=== PATIENT | female | born 1965 | race Caucasian/White ===

== ENCOUNTER 2017-06-10 11:32 | Emergency (ER) | payer OTHER ==
[2017-06-10 11:36] VITALS: BMI 40.7
[2017-06-10 11:39] VITALS: BP 138/79
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
[2017-06-10] MEDS ORDERED: TORADOL 60 MG VIAL IM ONE (12:55)
[2017-06-10] MEDS ORDERED: TORADOL 60 MG VIAL ONE (12:57)
--- NOTE | 2017-06-10 13:03 | RAD ---
Examination: X-rays of the right hip. Clinical history: Right hip pain, fell this morning. Technique: An AP view of the pelvis and a frog-leg lateral view of the right knee were obtained. Comparison: None available. Findings: No acute fracture, dislocation, or destructive bony lesion is noted. No arthropathy is noted at the hips bilaterally. Degenerative changes are noted in the visualized por tion of the spine. Calcific densities are seen overlying the pelvis, likely due to phleboliths. A soft tissue opacity is seen overlying the pelvis, likely a partially filled bladder. Impression: 1. No acute fracture or dislocation. Reported By:
--- NOTE | 2017-06-10 13:04 | RAD ---
Examination: X-rays of the left tib-fib. Clinical history: Left leg pain, fell this morning. Technique: Two views of the left tib-fib were obtained. Comparison: None available. Findings: No acute fracture, dislocation, or destructive bony lesion is noted. No soft tissue abnormality is noted. Impression: 1. No acute fracture or dislocation. Reported By:
--- NOTE | 2017-06-10 13:05 | RAD ---
Examination: X-rays of the right tib-fib. Clinical history: Right leg pain, fell this morning. Technique: Two views of the right tib-fib were obtained. Comparison: None available. Findings: No acute fracture, dislocation, or destructive bony lesion is noted. No soft tissue abnormality is noted. Impression: 1. No acute fracture or dislocation. Reported By:
--- NOTE | 2017-06-10 13:32 | RAD ---
Examination: X-rays of the lumbar spine. Clinical History: Lower back pain, fell this morning. Technique: Three views of the lumbar spine were obtained. Comparison: None available. Findings: The vertebral body alignment is within normal limits. There is narrowing of the L5-S1 intervertebral disc space, with vacuum disc phenomenon seen associate d with the intervertebral disc space, consistent with disc degenerative changes. A biconcave appearance is seen associated with the vertebrae throughout the lumbar spine and in the v isualized portion of the thoracic spine. 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 Findings are nonspecific and could be seen in osteoporosis, sickle-cell disease, hereditary sphero cytosis, homocystinuria, renal osteodystrophy, osteogenesis imperfecta and thalassemia major. Clinica l correlation is recommended. There is a moderate anterior wedge compression deformity of the T11 vertebra. The age is indeterminat e. Clinical correlation with the patient's history and point tenderness is recommended. An MRI of the thoracic/lumbar spine could be obtained for more complete evaluation of this finding, if clinically indicated. Mild vertebral body osteophytosis is seen at multiple levels in the lumbar spine. No spondylolysis or spondylolisthesis is noted. No soft tissue abnormality is noted. Impression: 1. There is a moderate anterior wedge compression deformity of the T11 vertebra. The age is indetermi jackson. Clinical correlation with the patient's history and point tenderness is recommended. An MRI of the thoracic/lumbar spine could be obtained for more complete evaluation of this finding, if clinical ly indicated. 2. A biconcave appearance is seen associated with the vertebrae throughout the lumbar spine and in th e visualized portion of the thoracic spine. Findings are consistent with so-called 'fish-mouth' verte brae. Findings are nonspecific and could be seen in osteoporosis, sickle-cell disease, hereditary sph erocytosis, homocystinuria, renal osteodystrophy, osteogenesis imperfecta and thalassemia major. Clin ical correlation is recommended. 3. Lumbar spondylosis, as described above. 4. Narrowing of the L5-S1 intervertebral disc space, consistent with disc degenerative changes. Reported By:
--- NOTE | 2017-06-10 14:23 | CT ---
HISTORY: Proximal lateral right lower leg pain after fall Study: CT of the right lower leg without contrast Comparison: Radiograph same day Technique: Multiple axial images were obtained without administration of IV contrast. Sagittal and c oronal reformats were performed and reviewed. Dose reduction techniques including Automated Exposure Control (AEC) and adjustment of mA and kV were utilized. Findings: There is no acute fracture or dislocation identified. Normal alignment of the right knee and ankle jaziel ints. The surrounding soft tissues are intact with mild soft tissue swelling noted laterally overlyin g the distal fibula and mild soft tissue swelling also noted medial to the tibial plateau. No joint e ffusion. IMPRESSION: 1. Mild soft tissue swelling as described without acute fracture. Reported By:
[2017-06-10] MEDS ORDERED: ADACEL TDaP IM ONE ×2 (14:49→14:51)
== END 2017-06-10 15:19 | disposition home or self-care (01) ==
LOC: ER 11:48
DX: M25.551 Pain in right hip (principal); M79.1 Myalgia; W19.XXXA Unspecified fall, initial encounter; Y92.019 Unspecified place in single-family (private) house as the place of occurrence of the external cause
CPT/HCPCS: 72100; 73501; 73590; 73700; 90471; 96372; 99282; J1885

== ENCOUNTER → 2017-06-27 | Outpatient (CLI) | payer OTHER ==
[2017-06-10 11:39] VITALS: BP 138/79
--- NOTE | 2017-06-28 10:01 | CT ---
History: Bronchiolitis obliterans. Study: High resolution chest CT. Comparison: Chest x-ray dated January 17, 2016, lumbar spine series dated June 10, 2017, and CT abdo men/pelvis dated January 01, 2016. Technique: Multiple axial CT images through the chest without IV contrast. Additional high resolution cuts were performed at 1 mm slice thickness at one centimeter interval using a bone algorithm with a n inspiratory and expiratory phase in prone and supine positions. Findings: Mediastinum: Mild calcification of the proximal left anterior descending coronary artery. Otherwise, the visualized great vessels, heart, trachea, esophagus, and thyroid gland appear normal. No patholog ic mediastinal or hilar adenopathy. Lungs: Anterior right lower lung scarring with linear calcification. This is nonspecific but may repr esent sequela from remote lung biopsy. No obvious focal consolidation, pleural effusion, pneumothorax , pulmonary nodule, or mass. High-resolution: No evidence of bronchiectasis, fibrosis, or air-trapping. Abdomen: Diffuse fatty infiltration of the liver with focal fatty sparing at the gallbladder fossa. N o obvious liver lesions. Otherwise, the visualized upper abdominal structures appear normal. Musculoskeletal: Multiple compression deformities of the thoracolumbar spine appear unchanged given t echnique. No acute osseous abnormality. Impression: 1. No evidence of acute thoracic pathology. 2. Other chronic findings as above. Reported By:
== END ==
LOC: RAD 13:34
PROVIDERS: ATTEND Internal Medicine Sleep Medicine
DX: J44.9 Chronic obstructive pulmonary disease, unspecified (principal)
CPT/HCPCS: 71250

== ENCOUNTER 2017-10-05 16:16 | Observation (INO) | payer OTHER ==
[2017-10-05] MEDS: NS 1000 ML 1,000 ML IV SCH (17:50)
[2017-10-05 18:13] LABS: BASOPHILS # (AUTO) 0.1 X10^3/uL (0.0-0.1); BASOPHILS % (AUTO) 0.8 % (0.2-1.0); EOSINOPHILS # (AUTO) 0.4 x10^3/uL (0.0-0.2); EOSINOPHILS % (AUTO) 3.4 % (0.9-2.9); HEMATOCRIT 40.5 % (36.0-47.0); HEMOGLOBIN 13.8 g/dL (12.0-16.0); LYMPHOCYTES # (AUTO) 3.2 X10^3/uL (1.3-2.9); LYMPHOCYTES % (AUTO) 30.7 % (21.0-51.0); MEAN CORPUSCULAR HEMOGLOBIN 29.3 pg (27.0-34.0); MEAN CORPUSCULAR HGB CONC 34.1 g/dL (33.0-35.0); MEAN CORPUSCULAR VOLUME 85.8 fL (80.0-100.0); MEAN PLATELET VOLUME 8.1 fL (7.4-11.0); MONOCYTES # (AUTO) 0.6 x10^3/uL (0.3-0.8); MONOCYTES % (AUTO) 6.2 % (0.0-13.0); NEUTROPHILS # (AUTO) 6.2 x10^3/uL (2.2-4.8); NEUTROPHILS % (AUTO) 58.9 % (42.0-75.0); PLATELET COUNT 335 X10^3/uL (150.0-450.0); RED BLOOD COUNT 4.72 X10^6/uL (3.5-5.4); RED CELL DISTRIBUTION WIDTH 13.5 % (11.6-16.5); WHITE BLOOD COUNT 10.5 X10^3/uL (3.6-10.0)
[2017-10-05 18:18] LABS: ALANINE AMINOTRANSFERASE 39 Units/L (12-78); ALBUMIN 3.8 g/dL (3.4-5.0); ALKALINE PHOSPHATASE 92 Units/L (46-116); ASPARTATE AMINO TRANSFERASE 25 Units/L (15-37); BLOOD UREA NITROGEN 16 mg/dL (7-18); CALCIUM 9.1 mg/dL (8.5-10.1); CARBON DIOXIDE 28.4 mmol/L (21-32); CHLORIDE 98 mmol/L (98-107); COR NA(FOR HYPERGLY) 139 mmol/L (136-145); CREATINE KINASE 52 Units/L (26-192); CREATININE 0.77 mg/dL (0.55-1.02); SODIUM 134 mmol/L (136-145); TOTAL PROTEIN 8.7 g/dL (6.4-8.2); eGFR BLACK RACES > 60 (>60); eGFR NON BLACK RACES > 60 (>60)
[2017-10-05 18:29] VITALS: BMI 42.3
[2017-10-05 19:09] LABS: BILIRUBIN,URINE NEGATIVE (NEGATIVE); BLOOD/HEMOGLOBIN,URINE NEGATIVE (NEGATIVE); GLUCOSE, URINE 3+ (NEGATIVE); KETONES,URINE NEGATIVE (NEGATIVE); LEUKOCYTE ESTERASE ,URINE 1+ (NEGATIVE); NITRITES,URINE NEGATIVE (NEGATIVE); PROTEIN,URINE NEGATIVE (NEGATIVE); UROBILINOGEN,URINE NORMAL (NORMAL)
[2017-10-05 19:19] LABS: APPEARANCE,URINE CLEAR (CLEAR); BACTERIA,URINE TRACE /HPF (NEGATIVE); COLOR,URINE PALE YELLOW (YELLOW); RBC,URINE 0-2 /HPF (NONE SEEN); SQUAMOUS EPITHELIAL CELL,UR FEW /HPF (NEGATIVE)
[2017-10-05 19:20] LABS: RENAL EPITHELIAL CELLS,URINE RARE /HPF (NEGATIVE)
--- NOTE | 2017-10-05 19:43 | CT ---
HEAD CT WITHOUT IV CONTRAST CLINICAL INDICATION: Fall with weakness TECHNIQUE: Axial CT images from skull base to vertex without IV contrast.Dose reduction techniques in cluding Automated Exposure Control (AEC) and adjustment of mA and kV were utlized. COMPARISON: None FINDINGS: There is no abnormal brain parenchymal density. There is no evidence of acute infarction, intracrani al hemorrhage, mass or mass effect, or abnormal extra-axial collection. The density of the larger dur al venous sinuses is normal. The ventricles are normal in size, shape and position. The skull base an d calvarium are normal. The included paranasal sinuses and mastoid air cells are predominantly clear. IMPRESSION: 1. No acute intracranial abnormality. Reported By:
[2017-10-05] MEDS: HumuLIN R SUBCUT PRN (20:39)
[2017-10-06 06:32] LABS: BASOPHILS # (AUTO) 0.1 X10^3/uL (0.0-0.1); BASOPHILS % (AUTO) 0.7 % (0.2-1.0); EOSINOPHILS # (AUTO) 0.4 x10^3/uL (0.0-0.2); EOSINOPHILS % (AUTO) 3.3 % (0.9-2.9); HEMATOCRIT 39.4 % (36.0-47.0); HEMOGLOBIN 13.4 g/dL (12.0-16.0); LYMPHOCYTES # (AUTO) 4.1 X10^3/uL (1.3-2.9); LYMPHOCYTES % (AUTO) 31.9 % (21.0-51.0); MEAN CORPUSCULAR HEMOGLOBIN 29.3 pg (27.0-34.0); MEAN CORPUSCULAR VOLUME 86.1 fL (80.0-100.0); MONOCYTES # (AUTO) 0.9 x10^3/uL (0.3-0.8); MONOCYTES % (AUTO) 6.9 % (0.0-13.0); NEUTROPHILS # (AUTO) 7.4 x10^3/uL (2.2-4.8); NEUTROPHILS % (AUTO) 57.2 % (42.0-75.0); PLATELET COUNT 319 X10^3/uL (150.0-450.0); RED BLOOD COUNT 4.58 X10^6/uL (3.5-5.4); RED CELL DISTRIBUTION WIDTH 13.8 % (11.6-16.5)
[2017-10-06 07:04] LABS: ALANINE AMINOTRANSFERASE 37 Units/L (12-78); ALBUMIN 3.4 g/dL (3.4-5.0); ALKALINE PHOSPHATASE 85 Units/L (46-116); ASPARTATE AMINO TRANSFERASE 24 Units/L (15-37); BLOOD UREA NITROGEN 13 mg/dL (7-18); CALCIUM 8.7 mg/dL (8.5-10.1); CARBON DIOXIDE 29.9 mmol/L (21-32); CHLORIDE 102 mmol/L (98-107); COR NA(FOR HYPERGLY) 141 mmol/L (136-145); CREATINE KINASE 49 Units/L (26-192); CREATININE 0.78 mg/dL (0.55-1.02); SODIUM 139 mmol/L (136-145); eGFR BLACK RACES > 60 (>60); eGFR NON BLACK RACES > 60 (>60)
[2017-10-06] MEDS: NS 1000 ML 1,000 ML IV SCH ×2 (09:10→23:34)
--- NOTE | 2017-10-06 09:54 | DR.UPDATE ---
H&P Update History and Physical Update: WAS SEEN IN THE OFFICE ON 10/05/2017. A H&P WAS COMPLETED PRIOR TO ADMISSION. PATIENT HAS BEEN SEEN AND EXAMINED WITH NO CHANGES NOTED TO H&P. Changes noted: NO Yes with the following:
--- NOTE | 2017-10-06 11:17 | RAD ---
HISTORY: Bilateral hip pain Study: Bilateral hips AP, frog-leg, AP pelvis Comparison: 06/10/2017 Findings: The bones are osteopenic. The pelvic bones and SI joints are intact. The hip joints are intact. No jaziel int erosions are noted. No fracture, lytic, or blastic lesion is identified. No periarticular soft ti ssue abnormality is identified. IMPRESSION: Normal hips bilaterally Osteopenia Reported By:
--- NOTE | 2017-10-06 11:20 | RAD ---
Indication: Back pain Exam: Lumbar spine series Comparison: 06/10/2017. Findings: The lumbar vertebra are well aligned. There is a biconcave appearance throughout the thorac olumbar vertebra which is unchanged. There are mild compression fractures of T11, T12, L1, and L4 whi ch are grossly unchanged. No displaced or retropulsed fragment is seen. There are sclerotic changes f acets inferiorly with no pars defect seen. The bones are osteopenic. The pedicles are intact. Impression: Multiple old compression fractures along the thoracolumbar spine as above which are unchanged with no acute abnormality seen. Mild degenerative disc changes throughout and moderate osteoarthritic changes of the facets throughou t which is unchanged . Diffuse osteopenia Biconcave appearance throughout vertebra of the thoracolumbar spine which was described previously an d is unchanged . This can be seen and sickle cell disease or other types of metabolic bone disease. R ecommend clinical follow-up. Reported By:
[2017-10-06] MEDS: ASPIRIN EC 81 MG PO SCH (11:27)
[2017-10-06] MEDS: HumuLIN R SUBCUT PRN ×3 (12:20→21:26)
[2017-10-06] MEDS ORDERED: ULTRAM PO PRN (15:02)
[2017-10-06] MEDS ORDERED: ZOLOFT PO ONE (16:10)
[2017-10-06] MEDS: ZOLOFT PO SCH (16:11)
[2017-10-06] MEDS: WELLBUTRIN XL 150 MG (DAILY) PO SCH (16:11)
[2017-10-06] MEDS: NORCO 10/325 TAB PO PRN ×2 (16:12→23:34)
[2017-10-06] MEDS ORDERED: LAMICTAL TAB 100 MG PO SCH (21:00)
[2017-10-06] MEDS ORDERED: KLONOPIN TAB 1 MG PO PRN (22:00)
[2017-10-07 06:21] LABS: BASOPHILS # (AUTO) 0.1 X10^3/uL (0.0-0.1); BASOPHILS % (AUTO) 0.5 % (0.2-1.0); EOSINOPHILS # (AUTO) 0.4 x10^3/uL (0.0-0.2); EOSINOPHILS % (AUTO) 3.4 % (0.9-2.9); HEMATOCRIT 37.8 % (36.0-47.0); HEMOGLOBIN 12.8 g/dL (12.0-16.0); LYMPHOCYTES # (AUTO) 4.1 X10^3/uL (1.3-2.9); LYMPHOCYTES % (AUTO) 37.1 % (21.0-51.0); MEAN CORPUSCULAR HEMOGLOBIN 29.4 pg (27.0-34.0); MEAN CORPUSCULAR HGB CONC 33.8 g/dL (33.0-35.0); MEAN PLATELET VOLUME 7.9 fL (7.4-11.0); MONOCYTES # (AUTO) 0.9 x10^3/uL (0.3-0.8); MONOCYTES % (AUTO) 8.4 % (0.0-13.0); NEUTROPHILS # (AUTO) 5.5 x10^3/uL (2.2-4.8); NEUTROPHILS % (AUTO) 50.6 % (42.0-75.0); PLATELET COUNT 286 X10^3/uL (150.0-450.0); RED BLOOD COUNT 4.35 X10^6/uL (3.5-5.4); RED CELL DISTRIBUTION WIDTH 13.7 % (11.6-16.5)
[2017-10-07] MEDS: HumuLIN R SUBCUT PRN ×2 (06:29→13:15)
[2017-10-07 06:34] LABS: ALANINE AMINOTRANSFERASE 39 Units/L (12-78); ALBUMIN 3.2 g/dL (3.4-5.0); ALKALINE PHOSPHATASE 83 Units/L (46-116); ASPARTATE AMINO TRANSFERASE 24 Units/L (15-37); BLOOD UREA NITROGEN 15 mg/dL (7-18); CALCIUM 8.4 mg/dL (8.5-10.1); CARBON DIOXIDE 33.9 mmol/L (21-32); CHLORIDE 100 mmol/L (98-107); COR NA(FOR HYPERGLY) 142 mmol/L (136-145); CREATININE 0.76 mg/dL (0.55-1.02); SODIUM 138 mmol/L (136-145); TOTAL PROTEIN 7.6 g/dL (6.4-8.2); eGFR BLACK RACES > 60 (>60); eGFR NON BLACK RACES > 60 (>60)
[2017-10-07] MEDS: NORCO 10/325 TAB PO PRN (07:35)
[2017-10-07] MEDS ORDERED: COZAAR PO SCH (09:00)
[2017-10-07] MEDS ORDERED: ZOLOFT PO ONE (09:03)
[2017-10-07] MEDS: NS 1000 ML 1,000 ML IV SCH (09:10)
[2017-10-07] MEDS: WELLBUTRIN XL 150 MG (DAILY) PO SCH (09:11)
[2017-10-07] MEDS: ASPIRIN EC 81 MG PO SCH (09:12)
[2017-10-07] MEDS: ZOLOFT PO SCH (09:12)
[2017-10-07 12:52] VITALS: BP 156/92
--- NOTE | 2017-10-07 16:50 | VAS ---
HISTORY: Left leg pain. Study: Left lower extremity ultrasound. Comparison: None. TECHNIQUE: Multiple gibson scale and color flow Doppler images of the deep venous system were obtained of the left lower extremity. FINDINGS: The deep venous system of the left lower extremity was evaluated from the level of the common femoral vein through the popliteal vein. Normal color flow and augmentation can be observed. In addition, normal compression is seen throughout the deep venous system. IMPRESSION: Negative for DVT. Reported By:
[2017-10-09 08:30] LABS: ANTI-NUCLEAR ANTIBODY TEST None Detected (None Detected)
== END 2017-10-07 17:05 | disposition home or self-care (01) | DRG 556 ==
LOC: MED/SURG 16:16
PROVIDERS: ADMIT Internal Medicine; ATTEND Internal Medicine
DX: M25.551 Pain in right hip (principal); M25.561 Pain in right knee; M62.81 Muscle weakness (generalized); E11.65 Type 2 diabetes mellitus with hyperglycemia; F60.3 Borderline personality disorder; I10 Essential (primary) hypertension; W18.39XA Other fall on same level, initial encounter; M85.89 Other specified disorders of bone density and structure, multiple sites; R26.89 Other abnormalities of gait and mobility
CPT/HCPCS: 36415; 70450; 72110; 73521; 80053; 81001; 82550; 85025; 85652; 86140; 86200; 86308; 93971; 94760; A4216; A4222; G8978; G8979; G8990; G8991; S0106; G0378; J1815

== ENCOUNTER 2018-07-03 16:13 | Observation (INO) ==
[2018-07-03] MEDS ORDERED: TUSSIONEX PENNKINETIC SUSP PO PRN (17:33)
[2018-07-03] MEDS ORDERED: ZOFRAN INJ 4 MG VIAL IVP PRN (17:33)
[2018-07-03 17:56] LABS: BASOPHILS # (AUTO) 0.1 X10^3/uL (0.0-0.1); BASOPHILS % (AUTO) 0.6 % (0.2-1.0); EOSINOPHILS # (AUTO) 0.2 x10^3/uL (0.0-0.2); EOSINOPHILS % (AUTO) 1.8 % (0.9-2.9); HEMATOCRIT 44.1 % (36.0-47.0); HEMOGLOBIN 14.7 g/dL (12.0-16.0); LYMPHOCYTES % (AUTO) 26.2 % (21.0-51.0); MEAN CORPUSCULAR HEMOGLOBIN 28.6 pg (27.0-34.0); MEAN CORPUSCULAR HGB CONC 33.4 g/dL (33.0-35.0); MEAN CORPUSCULAR VOLUME 85.7 fL (80.0-100.0); MEAN PLATELET VOLUME 8.1 fL (7.4-11.0); MONOCYTES % (AUTO) 8.8 % (0.0-13.0); NEUTROPHILS # (AUTO) 7.2 x10^3/uL (2.2-4.8); NEUTROPHILS % (AUTO) 62.6 % (42.0-75.0); PLATELET COUNT 317 X10^3/uL (150.0-450.0); RED BLOOD COUNT 5.15 X10^6/uL (3.5-5.4); WHITE BLOOD COUNT 11.5 X10^3/uL (3.6-10.0)
--- NOTE | 2018-07-03 18:00 | RAD ---
HISTORY: Pneumonia Study: PA and lateral views of the chest. Comparison: Chest CT 06/27/2017 Findings: The cardiomediastinal silhouette is normal. No focal consolidations, pleural effusions or pneumothorax. Osseous structures demonstrate no acute abnormality. IMPRESSION: 1. No acute cardiopulmonary process. Reported By:
[2018-07-03] MEDS: XOPENEX 1.25 MG/3 ML NEBULE NEB SCH (18:05)
[2018-07-03 18:08] LABS: ALANINE AMINOTRANSFERASE 33 Units/L (12-78); ALBUMIN 3.8 g/dL (3.4-5.0); ALKALINE PHOSPHATASE 92 Units/L (46-116); ASPARTATE AMINO TRANSFERASE 21 Units/L (15-37); BLOOD UREA NITROGEN 13 mg/dL (7-18); CALCIUM 9.6 mg/dL (8.5-10.1); CARBON DIOXIDE 30.2 mmol/L (21-32); CHLORIDE 97 mmol/L (98-107); COR NA(FOR HYPERGLY) 140 mmol/L (136-145); CREATININE 0.74 mg/dL (0.55-1.02); SODIUM 136 mmol/L (136-145); TOTAL PROTEIN 8.5 g/dL (6.4-8.2); eGFR NON BLACK RACES > 60 (>60)
[2018-07-03] MEDS ORDERED: NS 1/2 1000 ML IV 1,000 ML IV ONE (18:35)
[2018-07-03] MEDS: NS 1/2 1000 ML IV 1,000 ML IV SCH (18:42)
[2018-07-03] MEDS: ROBITUSSIN DM PO SCH ×2 (18:43→22:27)
[2018-07-03] MEDS ORDERED: SALINE 3% 15 ML NEB TX NEB ONE (19:06)
[2018-07-03] MEDS ORDERED: NS 100 ML IV + SPIKE MINIBAG* 100 ML IV ONE (20:31)
[2018-07-03] MEDS: HumuLIN R SUBCUT PRN (20:40)
[2018-07-03] MEDS: SEROquel TAB 100 MG PO SCH (22:27)
[2018-07-03] MEDS: COREG TAB 6.25 MG PO SCH (22:28)
[2018-07-03] MEDS: ZOSYN VIAL 4.5 GRAMS IV SCH (22:29)
[2018-07-03] MEDS: KLONOPIN TAB 1 MG PO PRN (22:31)
[2018-07-04] MEDS: PULMICORT NEB TX 0.5 MG NEB SCH ×3 (00:29→20:03)
[2018-07-04] MEDS: XOPENEX 1.25 MG/3 ML NEBULE NEB SCH ×4 (00:29→16:26)
[2018-07-04] MEDS ORDERED: NS 100 ML IV + SPIKE MINIBAG* 100 ML IV ONE ×3 (05:01→20:04)
[2018-07-04] MEDS: ZOSYN VIAL 4.5 GRAMS IV SCH ×3 (05:11→21:19)
[2018-07-04 05:16] LABS: BASOPHILS % (AUTO) 0.4 % (0.2-1.0); EOSINOPHILS # (AUTO) 0.1 x10^3/uL (0.0-0.2); HEMATOCRIT 40.8 % (36.0-47.0); HEMOGLOBIN 13.6 g/dL (12.0-16.0); LYMPHOCYTES # (AUTO) 2.8 X10^3/uL (1.3-2.9); LYMPHOCYTES % (AUTO) 23.2 % (21.0-51.0); MEAN CORPUSCULAR HEMOGLOBIN 28.8 pg (27.0-34.0); MEAN CORPUSCULAR HGB CONC 33.3 g/dL (33.0-35.0); MEAN CORPUSCULAR VOLUME 86.4 fL (80.0-100.0); MEAN PLATELET VOLUME 8.4 fL (7.4-11.0); MONOCYTES # (AUTO) 1.2 x10^3/uL (0.3-0.8); MONOCYTES % (AUTO) 10.2 % (0.0-13.0); NEUTROPHILS # (AUTO) 7.8 x10^3/uL (2.2-4.8); NEUTROPHILS % (AUTO) 65.2 % (42.0-75.0); PLATELET COUNT 297 X10^3/uL (150.0-450.0); RED BLOOD COUNT 4.72 X10^6/uL (3.5-5.4); RED CELL DISTRIBUTION WIDTH 13.9 % (11.6-16.5)
[2018-07-04 05:40] LABS: ALBUMIN 3.3 g/dL (3.4-5.0); ALKALINE PHOSPHATASE 80 Units/L (46-116); ASPARTATE AMINO TRANSFERASE 18 Units/L (15-37); BLOOD UREA NITROGEN 14 mg/dL (7-18); CALCIUM 9.3 mg/dL (8.5-10.1); CARBON DIOXIDE 26.8 mmol/L (21-32); CHLORIDE 100 mmol/L (98-107); COR CA(FOR HYPOALB) 9.9 mg/dL (8.5-10.1); COR NA(FOR HYPERGLY) 140 mmol/L (136-145); CREATININE 0.75 mg/dL (0.55-1.02); SODIUM 137 mmol/L (136-145); TOTAL PROTEIN 7.6 g/dL (6.4-8.2); eGFR NON BLACK RACES > 60 (>60)
[2018-07-04 05:49] LABS: ALANINE AMINOTRANSFERASE 25 Units/L (12-78)
[2018-07-04] MEDS: HumuLIN R SUBCUT PRN ×4 (06:09→20:35)
--- NOTE | 2018-07-04 06:14 | RAD ---
HISTORY: Shortness of breath Study: Chest AP portable Comparison: 07/03/2018 Findings: The heart is within normal limits in size. The raffy are normal. The lung ramos are clear. No pleural effusions are identified. The bony thorax is unremarkable. IMPRESSION: Lungs remain clear Reported By:
[2018-07-04 07:59] VITALS: BMI 39.4
[2018-07-04] MEDS: COREG TAB 6.25 MG PO SCH ×2 (09:44→20:12)
[2018-07-04] MEDS: ROBITUSSIN DM PO SCH ×4 (09:44→20:12)
[2018-07-04] MEDS ORDERED: MUCOMYST 20% 200 MG/ML NEB SCH (10:00)
[2018-07-04] MEDS: COZAAR PO SCH (11:26)
[2018-07-04] MEDS: FLONASE NASAL SPRAY ENOSTRIL SCH ×2 (11:27→11:31)
[2018-07-04] MEDS: NORCO 10/325 TAB PO PRN ×2 (11:31→20:12)
[2018-07-04] MEDS: INSULIN DEGLUDEC 44 UNIT subcut SCH ×2 (11:32→20:14)
[2018-07-04] MEDS: MUCOMYST 20% 200 MG/ML NEB SCH ×2 (11:59→16:25)
[2018-07-04] MEDS: NS 1/2 1000 ML IV 1,000 ML IV SCH ×3 (15:01→23:20)
[2018-07-04] MEDS ORDERED: NS 1/2 1000 ML IV 1,000 ML IV ONE ×2 (15:03→20:05)
--- NOTE | 2018-07-04 19:57 | DR.UPDATE ---
H&P Update History and Physical Update: WAS SEEN IN THE OFFICE TODAY. SHE WAS ADMITTED FOR FURTHER EVALUATION AND TREATMENT OF BRONCHOPNEUMONIA AND HYPERTENSION. A H&P WAS COMPLETED PRIOR TO ADMISSION. PATIENT HAS BEEN SEEN AND EXAMINED WITH NO CHANGES NOTED TO H&P. Changes noted: NO Yes with the following:
[2018-07-04] MEDS ORDERED: SNACK - Diabetic Appropriate PO SCH (20:00)
[2018-07-04] MEDS ORDERED: ZOLOFT PO ONE (20:03)
[2018-07-04] MEDS: KLONOPIN TAB 1 MG PO PRN (20:12)
[2018-07-04] MEDS: SEROquel TAB 100 MG PO SCH (20:13)
[2018-07-04] MEDS ORDERED: ZOLOFT PO SCH (21:00)
[2018-07-04] MEDS ORDERED: LAMICTAL TAB 100 MG PO SCH (21:00)
[2018-07-05] MEDS: XOPENEX 1.25 MG/3 ML NEBULE NEB SCH (00:05)
[2018-07-05] MEDS: MUCOMYST 20% 200 MG/ML NEB SCH (00:06)
[2018-07-05] MEDS ORDERED: NS 100 ML IV + SPIKE MINIBAG* 100 ML IV ONE (05:19)
[2018-07-05 05:26] LABS: BASOPHILS % (AUTO) 0.3 % (0.2-1.0); EOSINOPHILS # (AUTO) 0.2 x10^3/uL (0.0-0.2); EOSINOPHILS % (AUTO) 1.9 % (0.9-2.9); HEMATOCRIT 38.1 % (36.0-47.0); HEMOGLOBIN 12.4 g/dL (12.0-16.0); LYMPHOCYTES % (AUTO) 33.1 % (21.0-51.0); MEAN CORPUSCULAR HEMOGLOBIN 28.6 pg (27.0-34.0); MEAN CORPUSCULAR HGB CONC 32.6 g/dL (33.0-35.0); MEAN CORPUSCULAR VOLUME 87.7 fL (80.0-100.0); MEAN PLATELET VOLUME 8.3 fL (7.4-11.0); MONOCYTES # (AUTO) 1.4 x10^3/uL (0.3-0.8); MONOCYTES % (AUTO) 11.7 % (0.0-13.0); NEUTROPHILS # (AUTO) 6.4 x10^3/uL (2.2-4.8); PLATELET COUNT 244 X10^3/uL (150.0-450.0); RED BLOOD COUNT 4.34 X10^6/uL (3.5-5.4); RED CELL DISTRIBUTION WIDTH 14.2 % (11.6-16.5)
[2018-07-05] MEDS: ZOSYN VIAL 4.5 GRAMS IV SCH (05:28)
[2018-07-05 05:36] LABS: ALANINE AMINOTRANSFERASE 25 Units/L (12-78); ALKALINE PHOSPHATASE 76 Units/L (46-116); ASPARTATE AMINO TRANSFERASE 14 Units/L (15-37); BLOOD UREA NITROGEN 9 mg/dL (7-18); CALCIUM 8.6 mg/dL (8.5-10.1); CARBON DIOXIDE 27.3 mmol/L (21-32); CHLORIDE 101 mmol/L (98-107); COR CA(FOR HYPOALB) 9.4 mg/dL (8.5-10.1); COR NA(FOR HYPERGLY) 141 mmol/L (136-145); CREATININE 0.71 mg/dL (0.55-1.02); SODIUM 137 mmol/L (136-145); TOTAL PROTEIN 7.2 g/dL (6.4-8.2); eGFR NON BLACK RACES > 60 (>60)
[2018-07-05] MEDS: HumuLIN R SUBCUT PRN ×2 (05:46→11:37)
--- NOTE | 2018-07-05 05:53 | RAD ---
Chest, one view Indication: Shortness of breath Comparison: Findings: The heart is normal in size. No focal infiltrate, significant effusion or pneumothorax is identified. There is no acute osseous abnormality. Impression: No acute cardiopulmonary abnormality or significant interval change. Reported By:
[2018-07-05] MEDS ORDERED: MICRO K EXTEN CAP 10 MEQ PO PRN (06:49)
[2018-07-05] MEDS ORDERED: KLOR-CON PO PRN (06:49)
[2018-07-05] MEDS ORDERED: POTASSIUM CHLORIDE LIQ 20 MEQ UDC PO PRN (06:49)
[2018-07-05] MEDS ORDERED: POTASSIUM CHL 60 MEQ/NS 0.45% 500 ML IV PRN (06:49)
[2018-07-05] MEDS ORDERED: K-DUR TAB 20 MEQ PO PRN (06:49)
[2018-07-05] MEDS ORDERED: POTASSIUM CHL 40 MEQ/NS 0.45% 500 ML IV PRN (06:49)
[2018-07-05] MEDS ORDERED: K-RIDER 10 MEQ/NS 100 ML 10 MEQ/100 ML BAG IV PRN (06:49)
[2018-07-05 08:17] VITALS: BP 135/81
[2018-07-05] MEDS: NORCO 10/325 TAB PO PRN (08:47)
[2018-07-05] MEDS: COZAAR PO SCH (08:47)
[2018-07-05] MEDS: COREG TAB 6.25 MG PO SCH (08:47)
[2018-07-05] MEDS: ROBITUSSIN DM PO SCH (08:49)
[2018-07-05] MEDS: FLONASE NASAL SPRAY ENOSTRIL SCH (08:49)
[2018-07-05] MEDS: PULMICORT NEB TX 0.5 MG NEB SCH (09:10)
[2018-07-05] MEDS ORDERED: FLUVIRIN or FLUCELVAX IM ONE (11:00)
[2018-07-05] MEDS ORDERED: PNEUMOVAX 23 IM ONE (12:00)
== END 2018-07-05 12:10 | disposition home or self-care (01) ==
LOC: MED/SURG
PROVIDERS: ADMIT Internal Medicine; ATTEND Internal Medicine
DX: I10 Essential (primary) hypertension; R50.9 Fever, unspecified; I20.9 Angina pectoris, unspecified; Z79.899 Other long term (current) drug therapy; E11.65 Type 2 diabetes mellitus with hyperglycemia; M54.40 Lumbago with sciatica, unspecified side; Z23 Encounter for immunization; J18.0 Bronchopneumonia, unspecified organism; F60.3 Borderline personality disorder; R53.1 Weakness
CPT/HCPCS: 36415; 71010; 71020; 71045; 71046; 80053; 83735; 85025; 87040; 87070; 87205; 87502; 90674; 90686; 94640; 94760; A4222; G0378; J1815; J2543; J7050; J7608; J7626; S0195

== ENCOUNTER 2018-12-18 10:34 | Inpatient (IN) ==
[2018-12-18] MEDS ORDERED: ZOFRAN INJ 4 MG VIAL IVP PRN (13:26)
[2018-12-18] MEDS ORDERED: NS 1000 ML 1,000 ML ONE (13:32)
[2018-12-18] MEDS: NS 1000 ML 1,000 ML IV SCH ×2 (13:49→20:31)
[2018-12-18 13:51] LABS: BASOPHILS # (AUTO) 0.1 X10^3/uL (0.0-0.1); BASOPHILS % (AUTO) 0.9 % (0.2-1.0); EOSINOPHILS # (AUTO) 0.5 x10^3/uL (0.0-0.2); HEMATOCRIT 41.8 % (36.0-47.0); HEMOGLOBIN 13.9 g/dL (12.0-16.0); LYMPHOCYTES # (AUTO) 3.4 X10^3/uL (1.3-2.9); LYMPHOCYTES % (AUTO) 27.2 % (21.0-51.0); MEAN CORPUSCULAR HEMOGLOBIN 28.8 pg (27.0-34.0); MEAN CORPUSCULAR HGB CONC 33.3 g/dL (33.0-35.0); MEAN CORPUSCULAR VOLUME 86.5 fL (80.0-100.0); MEAN PLATELET VOLUME 8.2 fL (7.4-11.0); MONOCYTES # (AUTO) 0.8 x10^3/uL (0.3-0.8); MONOCYTES % (AUTO) 6.2 % (0.0-13.0); NEUTROPHILS # (AUTO) 7.8 x10^3/uL (2.2-4.8); NEUTROPHILS % (AUTO) 61.7 % (42.0-75.0); PLATELET COUNT 339 X10^3/uL (150.0-450.0); RED BLOOD COUNT 4.83 X10^6/uL (3.5-5.4); RED CELL DISTRIBUTION WIDTH 13.3 % (11.6-16.5); WHITE BLOOD COUNT 12.7 X10^3/uL (3.6-10.0)
[2018-12-18 14:06] LABS: ALANINE AMINOTRANSFERASE 23 Units/L (12-78); ALBUMIN 3.5 g/dL (3.4-5.0); ALKALINE PHOSPHATASE 81 Units/L (46-116); ASPARTATE AMINO TRANSFERASE 20 Units/L (15-37); BLOOD UREA NITROGEN 15 mg/dL (7-18); CALCIUM 9.6 mg/dL (8.5-10.1); CARBON DIOXIDE 28.4 mmol/L (21-32); CHLORIDE 98 mmol/L (98-107); COR NA(FOR HYPERGLY) 138 mmol/L (136-145); CREATININE 0.76 mg/dL (0.55-1.02); SODIUM 135 mmol/L (136-145); TOTAL PROTEIN 8.4 g/dL (6.4-8.2); eGFR NON BLACK RACES > 60 (>60)
[2018-12-18] MEDS: HumuLIN R SUBCUT PRN ×2 (17:54→20:32)
[2018-12-18 19:17] LABS: BILIRUBIN,URINE NEGATIVE (NEGATIVE); BLOOD/HEMOGLOBIN,URINE NEGATIVE (NEGATIVE); GLUCOSE, URINE 3+ (NEGATIVE); KETONES,URINE NEGATIVE (NEGATIVE); LEUKOCYTE ESTERASE ,URINE NEGATIVE (NEGATIVE); NITRITES,URINE NEGATIVE (NEGATIVE); PROTEIN,URINE NEGATIVE (NEGATIVE); UROBILINOGEN,URINE NORMAL (NORMAL)
[2018-12-18 19:24] LABS: APPEARANCE,URINE CLEAR (CLEAR); COLOR,URINE YELLOW (YELLOW)
[2018-12-18] MEDS: SNACK - Diabetic Appropriate PO SCH (20:33)
[2018-12-19] MEDS: NS 1000 ML 1,000 ML IV SCH ×3 (05:32→21:27)
[2018-12-19] MEDS: HumuLIN R SUBCUT PRN ×4 (05:33→21:35)
[2018-12-19 05:35] LABS: BASOPHILS # (AUTO) 0.1 X10^3/uL (0.0-0.1); EOSINOPHILS # (AUTO) 0.5 x10^3/uL (0.0-0.2); EOSINOPHILS % (AUTO) 3.9 % (0.9-2.9); HEMATOCRIT 37.6 % (36.0-47.0); HEMOGLOBIN 12.5 g/dL (12.0-16.0); LYMPHOCYTES # (AUTO) 4.8 X10^3/uL (1.3-2.9); LYMPHOCYTES % (AUTO) 39.5 % (21.0-51.0); MEAN CORPUSCULAR HEMOGLOBIN 28.9 pg (27.0-34.0); MEAN CORPUSCULAR HGB CONC 33.2 g/dL (33.0-35.0); MEAN CORPUSCULAR VOLUME 87.1 fL (80.0-100.0); MEAN PLATELET VOLUME 7.8 fL (7.4-11.0); MONOCYTES # (AUTO) 0.8 x10^3/uL (0.3-0.8); MONOCYTES % (AUTO) 6.8 % (0.0-13.0); NEUTROPHILS # (AUTO) 5.9 x10^3/uL (2.2-4.8); NEUTROPHILS % (AUTO) 48.8 % (42.0-75.0); PLATELET COUNT 290 X10^3/uL (150.0-450.0); RED BLOOD COUNT 4.32 X10^6/uL (3.5-5.4); RED CELL DISTRIBUTION WIDTH 13.7 % (11.6-16.5); WHITE BLOOD COUNT 12.1 X10^3/uL (3.6-10.0)
[2018-12-19 05:57] LABS: ALANINE AMINOTRANSFERASE 20 Units/L (12-78); ALBUMIN 2.9 g/dL (3.4-5.0); ALKALINE PHOSPHATASE 64 Units/L (46-116); ASPARTATE AMINO TRANSFERASE 15 Units/L (15-37); BLOOD UREA NITROGEN 14 mg/dL (7-18); CALCIUM 8.9 mg/dL (8.5-10.1); CARBON DIOXIDE 30.1 mmol/L (21-32); CHLORIDE 103 mmol/L (98-107); COR CA(FOR HYPOALB) 9.8 mg/dL (8.5-10.1); COR NA(FOR HYPERGLY) 143 mmol/L (136-145); CREATININE 0.79 mg/dL (0.55-1.02); SODIUM 140 mmol/L (136-145); eGFR NON BLACK RACES > 60 (>60)
[2018-12-19] MEDS ORDERED: POTASSIUM CHL 40 MEQ/NS 0.45% 500 ML IV PRN (06:12)
[2018-12-19] MEDS ORDERED: POTASSIUM CHL 60 MEQ/NS 0.45% 500 ML IV PRN (06:12)
[2018-12-19] MEDS ORDERED: MICRO K EXTEN CAP 10 MEQ PO PRN (06:12)
[2018-12-19] MEDS ORDERED: MAGNESIUM SULFATE 1 GRAM/100 mL PREMIX 1 GM/100 ML BAG IV PRN (06:12)
[2018-12-19] MEDS ORDERED: K-RIDER 10 MEQ/NS 100 ML 10 MEQ/100 ML BAG IV PRN (06:12)
[2018-12-19] MEDS ORDERED: POTASSIUM CHLORIDE LIQ 20 MEQ UDC PO PRN (06:12)
[2018-12-19] MEDS ORDERED: K-DUR TAB 20 MEQ PO PRN (06:12)
[2018-12-19] MEDS ORDERED: KLOR-CON PO PRN (06:12)
[2018-12-19 08:44] VITALS: BMI 42.9
[2018-12-19] MEDS ORDERED: ROCEPHIN VIAL 1 GRAM IVP SCH (09:00)
[2018-12-19] MEDS: ANTIVERT TAB 25 MG PO SCH (16:03)
[2018-12-19] MEDS: COZAAR PO SCH (16:03)
[2018-12-19] MEDS: FLONASE NASAL SPRAY ENOSTRIL SCH (16:04)
[2018-12-19] MEDS ORDERED: PHARMACY CONSULT - DOSE _____ XX SCH (17:00)
[2018-12-19] MEDS ORDERED: ZOLOFT ONE (20:06)
--- NOTE | 2018-12-19 20:06 | DR.UPDATE ---
H&P Update History and Physical Update: History and Physical reviewed and patient examined. Changes noted: Yes with the following: PRESENTED TO THE OFFICE WITH COMPLAINTS OF WEAKNESS, DIZZINESS, NAUSEA/VOMITING, AND SEVERE PAIN TO THE MOUTH. ON EXAMINATION, TOP RIGHT BACK TEETH X2 BROKEN OFF AND GUM LINE NOTED WIT H ERYTHEMA AND SWELLING. SHE IS NOTED WITH DIFFUSE ABDOMINAL TENDERNESS. SHE RECEIVED A ROCEPHIN INJECTION IN THE OFFICE ONE WEEK AGO WELL PRESCRIPTIONS FOR CEFDINIR 300MG PO BID AND MECLIZINE 25MG PO HS. SHE DENIES IMPROVEMENT IN SYMTOMS SINCE TREATMENT WAS STARTED. WE ADMITTED PATIENT FOR FURTHER EVALUATION AND TREATMENT OF DEHYDRATION, WEAKNESS, N/V, AND DENTAL ABSCESS. WE PLANNED TO OBTAIN LABS ON ADMISSION. WE WILL START NORMAL SALINE AT 125ML/HR, ROCEPHIN 1G IV DAILY, HUMULIN R SLIDING SCALE, AND WILL RESUME HER HOME MEDICATIONS. OTHERWISE, WE WILL FOLLOW UP WITH AM LABS AND CONTINUE TO MONITOR. Prescription drug monitoring program results: PDMP reviewed and no concerns identified
[2018-12-19] MEDS: SNACK - Diabetic Appropriate PO SCH (21:00)
[2018-12-19] MEDS ORDERED: NS 100 ML IV + SPIKE MINIBAG* 100 ML ONE ×2 (21:19→21:21)
[2018-12-19] MEDS: ZOSYN VIAL 3.375 GRAMS IV SCH (21:26)
[2018-12-19] MEDS: KLONOPIN TAB 1 MG PO PRN (21:27)
[2018-12-19] MEDS: ZOLOFT PO SCH (21:28)
[2018-12-19] MEDS: COREG TAB 6.25 MG PO SCH (21:28)
[2018-12-19] MEDS: NORCO 10/325 TAB PO PRN (21:28)
[2018-12-19] MEDS: LAMICTAL TAB 100 MG PO SCH (21:30)
[2018-12-19] MEDS: SEROquel TAB 100 MG PO SCH (21:30)
[2018-12-20] MEDS ORDERED: NS 100 ML IV + SPIKE MINIBAG* 100 ML ONE ×3 (04:44→20:02)
[2018-12-20] MEDS: NS 1000 ML 1,000 ML IV SCH ×3 (05:38→21:00)
[2018-12-20] MEDS: ZOSYN VIAL 3.375 GRAMS IV SCH ×3 (05:38→21:00)
[2018-12-20] MEDS: HumuLIN R SUBCUT PRN ×4 (06:01→21:01)
[2018-12-20 06:22] LABS: BASOPHILS # (AUTO) 0.1 X10^3/uL (0.0-0.1); BASOPHILS % (AUTO) 0.5 % (0.2-1.0); EOSINOPHILS # (AUTO) 0.4 x10^3/uL (0.0-0.2); EOSINOPHILS % (AUTO) 3.9 % (0.9-2.9); HEMATOCRIT 35.7 % (36.0-47.0); HEMOGLOBIN 12.1 g/dL (12.0-16.0); LYMPHOCYTES # (AUTO) 4.4 X10^3/uL (1.3-2.9); LYMPHOCYTES % (AUTO) 41.2 % (21.0-51.0); MEAN CORPUSCULAR HEMOGLOBIN 29.4 pg (27.0-34.0); MEAN CORPUSCULAR HGB CONC 33.8 g/dL (33.0-35.0); MEAN CORPUSCULAR VOLUME 86.9 fL (80.0-100.0); MEAN PLATELET VOLUME 7.7 fL (7.4-11.0); MONOCYTES # (AUTO) 0.8 x10^3/uL (0.3-0.8); MONOCYTES % (AUTO) 7.4 % (0.0-13.0); NEUTROPHILS # (AUTO) 5.1 x10^3/uL (2.2-4.8); PLATELET COUNT 296 X10^3/uL (150.0-450.0); RED CELL DISTRIBUTION WIDTH 13.6 % (11.6-16.5); WHITE BLOOD COUNT 10.8 X10^3/uL (3.6-10.0)
[2018-12-20 06:54] LABS: ALANINE AMINOTRANSFERASE 24 Units/L (12-78); ALKALINE PHOSPHATASE 65 Units/L (46-116); ASPARTATE AMINO TRANSFERASE 18 Units/L (15-37); BLOOD UREA NITROGEN 10 mg/dL (7-18); CALCIUM 8.4 mg/dL (8.5-10.1); CARBON DIOXIDE 29.7 mmol/L (21-32); CHLORIDE 103 mmol/L (98-107); COR CA(FOR HYPOALB) 9.2 mg/dL (8.5-10.1); COR NA(FOR HYPERGLY) 143 mmol/L (136-145); CREATININE 0.78 mg/dL (0.55-1.02); SODIUM 140 mmol/L (136-145); TOTAL PROTEIN 7.2 g/dL (6.4-8.2); eGFR NON BLACK RACES > 60 (>60)
[2018-12-20] MEDS: COZAAR PO SCH (09:17)
[2018-12-20] MEDS: ANTIVERT TAB 25 MG PO SCH (09:17)
[2018-12-20] MEDS: COREG TAB 6.25 MG PO SCH ×2 (09:17→20:47)
[2018-12-20] MEDS: ZOFRAN TAB 4 MG PO PRN (09:19)
[2018-12-20] MEDS: FLONASE NASAL SPRAY ENOSTRIL SCH (09:21)
[2018-12-20] MEDS: CIPRO IV 400 MG PREMIX* 400 MG/200 ML IV.SOLN. IV SCH ×2 (14:00→20:49)
[2018-12-20] MEDS: INSULIN DEGLUDEC 40 UNIT subcut SCH ×2 (17:08→21:00)
[2018-12-20] MEDS ORDERED: ZOLOFT ONE (20:01)
[2018-12-20] MEDS: ZOLOFT PO SCH (20:47)
[2018-12-20] MEDS: LAMICTAL TAB 100 MG PO SCH (20:47)
[2018-12-20] MEDS: SEROquel TAB 100 MG PO SCH (20:47)
[2018-12-20] MEDS: KLONOPIN TAB 1 MG PO PRN (20:58)
[2018-12-20] MEDS: NORCO 10/325 TAB PO PRN (20:58)
[2018-12-20] MEDS: SNACK - Diabetic Appropriate PO SCH (20:59)
[2018-12-21] MEDS ORDERED: NS 100 ML IV + SPIKE MINIBAG* 100 ML ONE ×2 (05:06→14:01)
[2018-12-21] MEDS: NS 1000 ML 1,000 ML IV SCH ×3 (06:08→22:26)
[2018-12-21] MEDS: ZOSYN VIAL 3.375 GRAMS IV SCH ×3 (06:08→22:20)
[2018-12-21] MEDS: HumuLIN R SUBCUT PRN ×2 (06:09→22:34)
[2018-12-21 06:20] LABS: BASOPHILS % (AUTO) 0.4 % (0.2-1.0); EOSINOPHILS # (AUTO) 0.5 x10^3/uL (0.0-0.2); EOSINOPHILS % (AUTO) 4.8 % (0.9-2.9); HEMATOCRIT 36.2 % (36.0-47.0); LYMPHOCYTES # (AUTO) 4.3 X10^3/uL (1.3-2.9); LYMPHOCYTES % (AUTO) 43.6 % (21.0-51.0); MEAN CORPUSCULAR HEMOGLOBIN 29.1 pg (27.0-34.0); MEAN CORPUSCULAR HGB CONC 33.2 g/dL (33.0-35.0); MEAN CORPUSCULAR VOLUME 87.4 fL (80.0-100.0); MEAN PLATELET VOLUME 7.8 fL (7.4-11.0); MONOCYTES # (AUTO) 0.7 x10^3/uL (0.3-0.8); MONOCYTES % (AUTO) 7.4 % (0.0-13.0); NEUTROPHILS # (AUTO) 4.3 x10^3/uL (2.2-4.8); NEUTROPHILS % (AUTO) 43.8 % (42.0-75.0); PLATELET COUNT 280 X10^3/uL (150.0-450.0); RED BLOOD COUNT 4.14 X10^6/uL (3.5-5.4); RED CELL DISTRIBUTION WIDTH 13.7 % (11.6-16.5); WHITE BLOOD COUNT 9.8 X10^3/uL (3.6-10.0)
[2018-12-21 06:53] LABS: ALANINE AMINOTRANSFERASE 23 Units/L (12-78); ALBUMIN 2.9 g/dL (3.4-5.0); ALKALINE PHOSPHATASE 66 Units/L (46-116); ASPARTATE AMINO TRANSFERASE 16 Units/L (15-37); BLOOD UREA NITROGEN 9 mg/dL (7-18); CALCIUM 8.5 mg/dL (8.5-10.1); CARBON DIOXIDE 30.1 mmol/L (21-32); CHLORIDE 102 mmol/L (98-107); COR CA(FOR HYPOALB) 9.4 mg/dL (8.5-10.1); COR NA(FOR HYPERGLY) 144 mmol/L (136-145); SODIUM 140 mmol/L (136-145); eGFR NON BLACK RACES > 60 (>60)
[2018-12-21] MEDS: COZAAR PO SCH (10:05)
[2018-12-21] MEDS: CIPRO IV 400 MG PREMIX* 400 MG/200 ML IV.SOLN. IV SCH ×2 (10:05→22:20)
[2018-12-21] MEDS: COREG TAB 6.25 MG PO SCH ×2 (10:05→22:23)
[2018-12-21] MEDS: ANTIVERT TAB 25 MG PO SCH (10:06)
[2018-12-21] MEDS: MAGIC MOUTHWASH MT SCH ×3 (14:18→22:25)
[2018-12-21] MEDS: FLONASE NASAL SPRAY ENOSTRIL SCH (14:19)
[2018-12-21] MEDS: SNACK - Diabetic Appropriate PO SCH (20:00)
--- NOTE | 2018-12-21 20:46 | PCM.PROG ---
Progress Note - Progress Note for Day of Date of Exam: 12/19/18 - Subjective Subjective: WAS ADMITTED FOR DEHYDRATION, WEAKNESS, AND A DENTAL ABSCESS. TODAY, SHE IS ALERT AND ORIENTED, LYING IN BED ON MORNING ROUNDS. SHE CONTINUES WITH COMPLAINTS OF PAIN TO MOUTH AND GENERALIZED WEAKNESS THIS MORNING. SHE DENIES NAUSEA OR VOMITING. ON EXAMINATION, HEART IS REGULAR IN RATE AND RHYTHM. BILATERAL LUNGS ARE NOTED WITH DIMINISHED LUNGS SOUNDS THROUGHOUT. ABDOMEN IS ROUND, SOFT, AND NON-TENDER WITH NORMAL BOWEL SOUNDS NOTED IN ALL QUADRANTS. HER VITALS THIS MORNING ARE: 97.5-73-20-00%-151/97. LABS WERE OBTAINED. ABNORMAL LAB VALUES INCLUDE THE FOLLOWING: WBC 12.1, GLUCOSE 206, ALBUMIN 2.9. SHE IS CURRENTLY RECEIVING IV FLUIDS AND ROCEPHIN 1G IV DAILY. WE WILL DISCONTINUE THE ROCEPHIN AND START ZOSYN 3.375G IV TID TODAY. WE WILL RESUME HER HOME MEDICATIONS. OTHERWISE, WE WILL FOLLOW UP WITH AM LABS AND CONTINUE TO MONITOR. - Past Medical Family Social History Past Med/Fam/Surg Hx: No changes since H&P Allergies: Allergies No Known Drug Allergies Allergy (Verified 06/10/17 12:12) - Review of Systems ROS: No change since H&P - Vital Signs and I&O's Vital Signs: Temperature 98.0 F Pulse Rate [Right Brachial] 69 Respiratory Rate 20 Blood Pressure [Left Arm] 123/73 Blood Pressure [Right Arm] 124/66 Blood Pressure 152/88 O2 Sat by Pulse Oximetry 96 Intake and Output: Intake & Output 12/19/18 12/20/18 12/21/18 12/22/18 11:59 11:59 11:59 11:59 Intake Total 1280 / 1280 1969 2210 / 2210 1560 / 1560 Output Total / Balance 1277 / 1277 1969 / 0 1560 / 1560 - Physical Exam Oriented: Normal Eyes: Normal Ear: Normal Nose: Normal Throat: Normal Respiratory: Diminished Cardiovascular: Normal : Normal Auscultation: Bowel Sounds: Normal Palpation: Normal Tenderness: Normal Skin: Decreased Turgur Musculoskeletal: Normal Psychiatric: Normal Mood Description: Calm Affect: Normal Speech Pattern: Clear, Appropriate - Laboratory and Diagnostics Result Diagrams: 12/21/18 05:34 12/21/18 05:34 Labs: Laboratory WBC 9.8 X10^3/uL (3.6-10.0) 12/21/18 05:34 RBC 4.14 X10^6/uL (3.5-5.4) 12/21/18 05:34 Hgb 12.0 g/dL (12.0-16.0) 12/21/18 05:34 Hct 36.2 % (36.0-47.0) 12/21/18 05:34 MCV 87.4 fL (80.0-100.0) 12/21/18 05:34 MCH 29.1 pg (27.0-34.0) 12/21/18 05:34 MCHC 33.2 g/dL (33.0-35.0) 12/21/18 05:34 RDW 13.7 % (11.6-16.5) 12/21/18 05:34 Plt Count 280 X10^3/uL (150.0-450.0) 12/21/18 05:34 MPV 7.8 fL (7.4-11.0) 12/21/18 05:34 Neut % (Auto) 43.8 % (42.0-75.0) 12/21/18 05:34 Lymph % (Auto) 43.6 % (21.0-51.0) 12/21/18 05:34 [place] % (Auto) 7.4 % (0.0-13.0) 12/21/18 05:34 Eos % (Auto) 4.8 % (0.9-2.9) H 12/21/18 05:34 Baso % (Auto) 0.4 % (0.2-1.0) 12/21/18 05:34 Neut # (Auto) 4.3 x10^3/uL (2.2-4.8) 12/21/18 05:34 Lymph # (Auto) 4.3 X10^3/uL (1.3-2.9) H 12/21/18 05:34 [place] # (Auto) 0.7 x10^3/uL (0.3-0.8) 12/21/18 05:34 Eos # (Auto) 0.5 x10^3/uL (0.0-0.2) H 12/21/18 05:34 Baso # (Auto) 0.0 X10^3/uL (0.0-0.1) 12/21/18 05:34 Absolute Nucleated RBC 0.0 /100WBC 12/21/18 05:34 ESR 44 MM/HOUR (0-20) H 12/19/18 11:20 Sodium 140 mmol/L (136-145) 12/21/18 05:34 Corrected Sodium 144 mmol/L (136-145) 12/21/18 05:34 Potassium 3.6 mmol/L (3.5-5.1) 12/21/18 05:34 Chloride 102 mmol/L (98-107) 12/21/18 05:34 Carbon Dioxide 30.1 mmol/L (21-32) 12/21/18 05:34 BUN 9 mg/dL (7-18) 12/21/18 05:34 Creatinine 0.80 mg/dL (0.55-1.02) 12/21/18 05:34 Est GFR (MDRD) Af Amer > 60 (>60) 12/21/18 05:34 Est GFR (MDRD) Non-Af > 60 (>60) 12/21/18 05:34 Glucose 262 mg/dL (65-99) H 12/21/18 05:34 POC Glucose (mg/dL) 212 mg/dL (65-99) H 12/21/18 16:26 Calcium 8.5 mg/dL (8.5-10.1) 12/21/18 05:34 Corrected Calcium 9.4 mg/dL (8.5-10.1) 12/21/18 05:34 Magnesium 2.4 mg/dL (1.7-2.9) 12/21/18 05:34 Total Bilirubin 0.20 mg/dL (0.2-1.0) 12/21/18 05:34 AST 16 Units/L (15-37) 12/21/18 05:34 ALT 23 Units/L (12-78) 12/21/18 05:34 Alkaline Phosphatase 66 Units/L (46-116) 12/21/18 05:34 C-Reactive Protein 31.50 mg/L (0-3.0) H 12/19/18 11:20 Total Protein 7.0 g/dL (6.4-8.2) 12/21/18 05:34 Albumin 2.9 g/dL (3.4-5.0) L 12/21/18 05:34 Globulin 4.1 g/dL (2.5-4.5) 12/21/18 05:34 Albumin/Globulin Ratio 0.7 Ratio (1.1-2.1) L 12/21/18 05:34 Specimen Type Clean catch urine 12/18/18 18:51 Urine Color Yellow (YELLOW) 12/18/18 18:51 Urine Appearance Clear (CLEAR) 12/18/18 18:51 Urine pH 5.0 (5.0 - 8.0) 12/18/18 18:51 Ur Specific [place] 1.025 (1.000-1.030) 12/18/18 18:51 Urine Protein Negative (NEGATIVE) 12/18/18 18:51 Urine Glucose (UA) 3+ (NEGATIVE) 12/18/18 18:51 Urine Ketones Negative (NEGATIVE) 12/18/18 18:51 Urine Occult Blood Negative (NEGATIVE) 12/18/18 18:51 Urine Nitrite Negative (NEGATIVE) 12/18/18 18:51 Urine Bilirubin Negative (NEGATIVE) 12/18/18 18:51 Urine Urobilinogen Normal (NORMAL) 12/18/18 18:51 Ur Leukocyte Esterase Negative (NEGATIVE) 12/18/18 18:51 - Plan (1) Dehydration Status: Acute Plan: NORMAL SALINE AT 125ML/HR, CONTINUE TO MONITOR (2) Dental abscess Status: Acute Plan: IV ZOSYN, CONTINUE TO MONITOR (3) Generalized weakness Status: Acute
--- NOTE | 2018-12-21 20:49 | PCM.PROG ---
Progress Note - Progress Note for Day of Date of Exam: 12/20/18 - Subjective Subjective: WAS ADMITTED FOR DEHYDRATION, WEAKNESS, AND A DENTAL ABSCESS. TODAY, SHE IS ALERT AND ORIENTED, LYING IN BED ON MORNING ROUNDS. SHE CONTINUES WITH COMPLAINTS OF PAIN TO MOUTH AND GENERALIZED WEAKNESS THIS MORNING. SHE DENIES NAUSEA OR VOMITING. ON EXAMINATION, HEART IS REGULAR IN RATE AND RHYTHM. BILATERAL LUNGS ARE NOTED WITH DIMINISHED LUNGS SOUNDS THROUGHOUT. ABDOMEN IS ROUND, SOFT, AND NON-TENDER WITH NORMAL BOWEL SOUNDS NOTED IN ALL QUADRANTS. HER VITALS THIS MORNING ARE: 98.3-82-18-96%-115/68. LABS WERE OBTAINED. ABNORMAL LAB VALUES INCLUDE THE FOLLOWING: WBC 10.8, HCT 35.7, GLUCOSE 236, CALCIUM 8.4, ALBUMIN 3.0. SHE IS CURRENTLY RECEIVING IV FLUIDS AND ZOSYN 3.375G IV TID TODAY. WILL START CIPRO 400MG IV BID TODAY. OTHERWISE, WE WILL FOLLOW UP WITH AM LABS AND CONTINUE TO MONITOR. - Past Medical Family Social History Past Med/Fam/Surg Hx: No changes since H&P Allergies: Allergies No Known Drug Allergies Allergy (Verified 06/10/17 12:12) - Review of Systems ROS: No change since H&P - Vital Signs and I&O's Vital Signs: Temperature 98.0 F Pulse Rate [Right Brachial] 69 Respiratory Rate 20 Blood Pressure [Left Arm] 123/73 Blood Pressure [Right Arm] 124/66 Blood Pressure 152/88 O2 Sat by Pulse Oximetry 96 Intake and Output: Intake & Output 12/19/18 12/20/18 12/21/18 12/22/18 11:59 11:59 11:59 11:59 Intake Total 1280 / 1280 1969 2210 / 0 1560 / 1560 Output Total 3 / 3 Balance 1277 / 1277 1969 / 0 1560 / 1560 - Physical Exam Oriented: Normal Eyes: Normal Ear: Normal Nose: Normal Throat: Normal Respiratory: Diminished Cardiovascular: Normal : Normal Auscultation: Bowel Sounds: Normal Tenderness: Normal Skin: Decreased Turgur Musculoskeletal: Normal Psychiatric: Normal Mood Description: Calm Affect: Normal Speech Pattern: Clear, Appropriate - Laboratory and Diagnostics Result Diagrams: 12/21/18 05:34 12/21/18 05:34 Labs: Laboratory WBC 9.8 X10^3/uL (3.6-10.0) 12/21/18 05:34 RBC 4.14 X10^6/uL (3.5-5.4) 12/21/18 05:34 Hgb 12.0 g/dL (12.0-16.0) 12/21/18 05:34 Hct 36.2 % (36.0-47.0) 12/21/18 05:34 MCV 87.4 fL (80.0-100.0) 12/21/18 05:34 MCH 29.1 pg (27.0-34.0) 12/21/18 05:34 MCHC 33.2 g/dL (33.0-35.0) 12/21/18 05:34 RDW 13.7 % (11.6-16.5) 12/21/18 05:34 Plt Count 280 X10^3/uL (150.0-450.0) 12/21/18 05:34 MPV 7.8 fL (7.4-11.0) 12/21/18 05:34 Neut % (Auto) 43.8 % (42.0-75.0) 12/21/18 05:34 Lymph % (Auto) 43.6 % (21.0-51.0) 12/21/18 05:34 [place] % (Auto) 7.4 % (0.0-13.0) 12/21/18 05:34 Eos % (Auto) 4.8 % (0.9-2.9) H 12/21/18 05:34 Baso % (Auto) 0.4 % (0.2-1.0) 12/21/18 05:34 Neut # (Auto) 4.3 x10^3/uL (2.2-4.8) 12/21/18 05:34 Lymph # (Auto) 4.3 X10^3/uL (1.3-2.9) H 12/21/18 05:34 [place] # (Auto) 0.7 x10^3/uL (0.3-0.8) 12/21/18 05:34 Eos # (Auto) 0.5 x10^3/uL (0.0-0.2) H 12/21/18 05:34 Baso # (Auto) 0.0 X10^3/uL (0.0-0.1) 12/21/18 05:34 Absolute Nucleated RBC 0.0 /100WBC 12/21/18 05:34 ESR 44 MM/HOUR (0-20) H 12/19/18 11:20 Sodium 140 mmol/L (136-145) 12/21/18 05:34 Corrected Sodium 144 mmol/L (136-145) 12/21/18 05:34 Potassium 3.6 mmol/L (3.5-5.1) 12/21/18 05:34 Chloride 102 mmol/L (98-107) 12/21/18 05:34 Carbon Dioxide 30.1 mmol/L (21-32) 12/21/18 05:34 BUN 9 mg/dL (7-18) 12/21/18 05:34 Creatinine 0.80 mg/dL (0.55-1.02) 12/21/18 05:34 Est GFR (MDRD) Af Amer > 60 (>60) 12/21/18 05:34 Est GFR (MDRD) Non-Af > 60 (>60) 12/21/18 05:34 Glucose 262 mg/dL (65-99) H 12/21/18 05:34 POC Glucose (mg/dL) 212 mg/dL (65-99) H 12/21/18 16:26 Calcium 8.5 mg/dL (8.5-10.1) 12/21/18 05:34 Corrected Calcium 9.4 mg/dL (8.5-10.1) 12/21/18 05:34 Magnesium 2.4 mg/dL (1.7-2.9) 12/21/18 05:34 Total Bilirubin 0.20 mg/dL (0.2-1.0) 12/21/18 05:34 AST 16 Units/L (15-37) 12/21/18 05:34 ALT 23 Units/L (12-78) 12/21/18 05:34 Alkaline Phosphatase 66 Units/L (46-116) 12/21/18 05:34 C-Reactive Protein 31.50 mg/L (0-3.0) H 12/19/18 11:20 Total Protein 7.0 g/dL (6.4-8.2) 12/21/18 05:34 Albumin 2.9 g/dL (3.4-5.0) L 12/21/18 05:34 Globulin 4.1 g/dL (2.5-4.5) 12/21/18 05:34 Albumin/Globulin Ratio 0.7 Ratio (1.1-2.1) L 12/21/18 05:34 Specimen Type Clean catch urine 12/18/18 18:51 Urine Color Yellow (YELLOW) 12/18/18 18:51 Urine Appearance Clear (CLEAR) 12/18/18 18:51 Urine pH 5.0 (5.0 - 8.0) 12/18/18 18:51 Ur Specific [place] 1.025 (1.000-1.030) 12/18/18 18:51 Urine Protein Negative (NEGATIVE) 12/18/18 18:51 Urine Glucose (UA) 3+ (NEGATIVE) 12/18/18 18:51 Urine Ketones Negative (NEGATIVE) 12/18/18 18:51 Urine Occult Blood Negative (NEGATIVE) 12/18/18 18:51 Urine Nitrite Negative (NEGATIVE) 12/18/18 18:51 Urine Bilirubin Negative (NEGATIVE) 12/18/18 18:51 Urine Urobilinogen Normal (NORMAL) 12/18/18 18:51 Ur Leukocyte Esterase Negative (NEGATIVE) 12/18/18 18:51 - Plan (1) Dehydration Status: Acute Plan: NORMAL SALINE AT 125ML/HR, CONTINUE TO MONITOR (2) Dental abscess Status: Acute Plan: IV ZOSYN, IV CIPRO, CONTINUE TO MONITOR (3) Generalized weakness Status: Acute
[2018-12-21] MEDS ORDERED: ZOLOFT ONE (21:57)
[2018-12-21] MEDS: ZOLOFT PO SCH (22:22)
[2018-12-21] MEDS: LAMICTAL TAB 100 MG PO SCH (22:22)
[2018-12-21] MEDS: NORCO 10/325 TAB PO PRN (22:23)
[2018-12-21] MEDS: KLONOPIN TAB 1 MG PO PRN (22:23)
[2018-12-21] MEDS: INSULIN DEGLUDEC 40 UNIT subcut SCH (22:24)
[2018-12-21] MEDS: SEROquel TAB 100 MG PO SCH (22:26)
[2018-12-22] MEDS: NS 1000 ML 1,000 ML IV SCH ×2 (04:10→05:28)
[2018-12-22] MEDS ORDERED: NS 100 ML IV + SPIKE MINIBAG* 100 ML ONE (05:16)
[2018-12-22] MEDS: ZOSYN VIAL 3.375 GRAMS IV SCH (05:33)
[2018-12-22 05:38] LABS: BASOPHILS # (AUTO) 0.1 X10^3/uL (0.0-0.1); BASOPHILS % (AUTO) 0.5 % (0.2-1.0); EOSINOPHILS # (AUTO) 0.6 x10^3/uL (0.0-0.2); EOSINOPHILS % (AUTO) 5.1 % (0.9-2.9); HEMATOCRIT 37.9 % (36.0-47.0); HEMOGLOBIN 12.4 g/dL (12.0-16.0); LYMPHOCYTES # (AUTO) 4.6 X10^3/uL (1.3-2.9); LYMPHOCYTES % (AUTO) 41.6 % (21.0-51.0); MEAN CORPUSCULAR HGB CONC 32.8 g/dL (33.0-35.0); MEAN CORPUSCULAR VOLUME 88.4 fL (80.0-100.0); MEAN PLATELET VOLUME 8.4 fL (7.4-11.0); MONOCYTES # (AUTO) 0.8 x10^3/uL (0.3-0.8); MONOCYTES % (AUTO) 7.6 % (0.0-13.0); NEUTROPHILS % (AUTO) 45.2 % (42.0-75.0); PLATELET COUNT 313 X10^3/uL (150.0-450.0); RED BLOOD COUNT 4.29 X10^6/uL (3.5-5.4); RED CELL DISTRIBUTION WIDTH 13.5 % (11.6-16.5)
[2018-12-22 05:56] LABS: ALANINE AMINOTRANSFERASE 21 Units/L (12-78); ALBUMIN 3.1 g/dL (3.4-5.0); ALKALINE PHOSPHATASE 70 Units/L (46-116); ASPARTATE AMINO TRANSFERASE 16 Units/L (15-37); BLOOD UREA NITROGEN 10 mg/dL (7-18); CALCIUM 8.6 mg/dL (8.5-10.1); CARBON DIOXIDE 29.9 mmol/L (21-32); CHLORIDE 100 mmol/L (98-107); COR CA(FOR HYPOALB) 9.3 mg/dL (8.5-10.1); COR NA(FOR HYPERGLY) 142 mmol/L (136-145); CREATININE 0.84 mg/dL (0.55-1.02); SODIUM 137 mmol/L (136-145); TOTAL PROTEIN 7.3 g/dL (6.4-8.2); eGFR NON BLACK RACES > 60 (>60)
[2018-12-22] MEDS: ZOFRAN TAB 4 MG PO PRN (06:16)
[2018-12-22] MEDS: HumuLIN R SUBCUT PRN ×2 (06:27→12:25)
[2018-12-22] MEDS: ANTIVERT TAB 25 MG PO SCH (09:20)
[2018-12-22] MEDS: COREG TAB 6.25 MG PO SCH (09:20)
[2018-12-22] MEDS: COZAAR PO SCH (09:20)
[2018-12-22] MEDS: CIPRO IV 400 MG PREMIX* 400 MG/200 ML IV.SOLN. IV SCH (09:20)
[2018-12-22] MEDS: MAGIC MOUTHWASH MT SCH (09:21)
[2018-12-22] MEDS: FLONASE NASAL SPRAY ENOSTRIL SCH (09:22)
[2018-12-22 12:47] VITALS: BP 119/67
== END 2018-12-22 13:30 | disposition home or self-care (01) | DRG 641 ==
LOC: MED/SURG 13:12
PROVIDERS: ADMIT Internal Medicine; ATTEND Internal Medicine
DX: J44.9 Chronic obstructive pulmonary disease, unspecified; R53.1 Weakness; K21.9 Gastro-esophageal reflux disease without esophagitis; E87.8 Other disorders of electrolyte and fluid balance, not elsewhere classified; R11.2 Nausea with vomiting, unspecified; R42 Dizziness and giddiness; E78.2 Mixed hyperlipidemia; E86.0 Dehydration; I10 Essential (primary) hypertension; K04.7 Periapical abscess without sinus; J01.90 Acute sinusitis, unspecified
CPT/HCPCS: 36415; 80053; 81003; 83735; 85025; 85652; 86140; 94760; A4216; A4222; J0696; J0744; J1815; J2405; J2543; J7030; J7050; S0119; S0181

== ENCOUNTER 2019-07-17 13:50 | Inpatient (IN) ==
[2019-07-17] MEDS ORDERED: TUSSIONEX PENNKINETIC SUSP PO PRN (15:15)
[2019-07-17] MEDS ORDERED: NS 1/2 1000 ML IV 1,000 ML IV ONE (15:30)
[2019-07-17] MEDS: ROBITUSSIN DM PO SCH ×3 (15:42→21:53)
[2019-07-17] MEDS: VSL#3 PO SCH (15:42)
[2019-07-17] MEDS: LEVAQUIN PREMIX IV 750 MG 750 MG/150 ML BAG IV SCH (15:42)
[2019-07-17] MEDS: NS 1/2 1000 ML IV 1,000 ML IV SCH (15:42)
[2019-07-17 15:54] LABS: BASOPHILS # (AUTO) 0.1 X10^3/uL (0.0-0.1); BASOPHILS % (AUTO) 0.5 % (0.2-1.0); EOSINOPHILS # (AUTO) 0.4 x10^3/uL (0.0-0.2); EOSINOPHILS % (AUTO) 3.4 % (0.9-2.9); HEMATOCRIT 42.4 % (36.0-47.0); HEMOGLOBIN 14.1 g/dL (12.0-16.0); LYMPHOCYTES # (AUTO) 2.1 X10^3/uL (1.3-2.9); MEAN CORPUSCULAR HEMOGLOBIN 28.1 pg (27.0-34.0); MEAN CORPUSCULAR HGB CONC 33.2 g/dL (33.0-35.0); MEAN CORPUSCULAR VOLUME 84.8 fL (80.0-100.0); MEAN PLATELET VOLUME 7.7 fL (7.4-11.0); MONOCYTES # (AUTO) 0.9 x10^3/uL (0.3-0.8); MONOCYTES % (AUTO) 8.2 % (0.0-13.0); NEUTROPHILS # (AUTO) 7.6 x10^3/uL (2.2-4.8); NEUTROPHILS % (AUTO) 68.9 % (42.0-75.0); PLATELET COUNT 324 X10^3/uL (150.0-450.0); RED BLOOD COUNT 5.01 X10^6/uL (3.5-5.4); RED CELL DISTRIBUTION WIDTH 13.7 % (11.6-16.5)
[2019-07-17] MEDS: DUONEB 0.5 MG/3 MG (3 mL) NEB SCH ×2 (16:00→20:30)
[2019-07-17 16:05] LABS: ALANINE AMINOTRANSFERASE 32 Units/L (12-78); ALBUMIN 3.5 g/dL (3.4-5.0); ALKALINE PHOSPHATASE 86 Units/L (46-116); ASPARTATE AMINO TRANSFERASE 24 Units/L (15-37); BLOOD UREA NITROGEN 7 mg/dL (7-18); CALCIUM 9.1 mg/dL (8.5-10.1); CARBON DIOXIDE 32.5 mmol/L (21-32); CHLORIDE 97 mmol/L (98-107); COR NA(FOR HYPERGLY) 140 mmol/L (136-145); SODIUM 134 mmol/L (136-145); eGFR NON BLACK RACES > 60 (>60)
[2019-07-17] MEDS ORDERED: SALINE 3% 15 ML NEB TX NEB ONE (16:13)
--- NOTE | 2019-07-17 16:22 | RAD ---
HISTORYPNASTUDYCHEST, PA/LAT ADULTCOMPARISONAP chest December 10, 2018.FINDINGSThe trachea is midline. The cardiac silhouette is unremarkable . The lungs are clear without focal infiltrate or effusion. The bony thorax is unremarkable.IMPRESSIONNo acute cardiopulmonary disease and no significant interval change compared to prior chest film December 10, 2018Electronically signed by: DELPHINE BARAJAS (Jul 17, 2019 16:21:48)
[2019-07-17 16:33] VITALS: BMI 42.9
[2019-07-17] MEDS: FORTAZ or TAZICEF VIAL INJ 1 G in NS 100 ML IV + SPIKE MINIBAG* 100 ML IV SCH ×2 (17:28→21:55)
[2019-07-17] MEDS: PULMICORT NEB TX 0.5 MG NEB SCH (20:30)
[2019-07-17] MEDS: HumuLIN R SC PRN (21:55)
[2019-07-17] MEDS: SNACK - Diabetic Appropriate PO SCH (21:55)
[2019-07-18] MEDS: DUONEB 0.5 MG/3 MG (3 mL) NEB SCH ×6 (01:41→20:20)
[2019-07-18] MEDS ORDERED: NS 1/2 1000 ML IV 1,000 ML IV ONE (05:13)
[2019-07-18] MEDS: NS 1/2 1000 ML IV 1,000 ML IV SCH ×2 (05:33→20:18)
[2019-07-18] MEDS: FORTAZ or TAZICEF VIAL INJ 1 G in NS 100 ML IV + SPIKE MINIBAG* 100 ML IV SCH ×3 (05:33→21:02)
[2019-07-18] MEDS: HumuLIN R SC PRN ×4 (06:13→21:10)
--- NOTE | 2019-07-18 06:36 | RAD ---
HISTORYShortness of breathSTUDYCHEST, 1 VIEWCOMPARISONFebruary 2019FINDINGSThe heart is within normal limits in size. The raffy are normal. The lung ramos are clear. The right hemidiaphragm is elevated. Bony thorax is unremarkable.IMPRESSIONNo significant abnormality identifiedElectronically signed by: JENN FRANKLIN (Jul 18, 2019 06:35:48)
[2019-07-18 06:40] LABS: BASOPHILS # (AUTO) 0.1 X10^3/uL (0.0-0.1); BASOPHILS % (AUTO) 0.7 % (0.2-1.0); EOSINOPHILS # (AUTO) 0.4 x10^3/uL (0.0-0.2); EOSINOPHILS % (AUTO) 3.8 % (0.9-2.9); HEMATOCRIT 39.6 % (36.0-47.0); HEMOGLOBIN 13.3 g/dL (12.0-16.0); LYMPHOCYTES % (AUTO) 39.3 % (21.0-51.0); MEAN CORPUSCULAR HEMOGLOBIN 28.5 pg (27.0-34.0); MEAN CORPUSCULAR HGB CONC 33.5 g/dL (33.0-35.0); MEAN CORPUSCULAR VOLUME 84.9 fL (80.0-100.0); MEAN PLATELET VOLUME 7.9 fL (7.4-11.0); MONOCYTES % (AUTO) 9.6 % (0.0-13.0); NEUTROPHILS # (AUTO) 4.8 x10^3/uL (2.2-4.8); NEUTROPHILS % (AUTO) 46.6 % (42.0-75.0); PLATELET COUNT 301 X10^3/uL (150.0-450.0); RED BLOOD COUNT 4.66 X10^6/uL (3.5-5.4); RED CELL DISTRIBUTION WIDTH 13.7 % (11.6-16.5); WHITE BLOOD COUNT 10.3 X10^3/uL (3.6-10.0)
[2019-07-18 06:58] LABS: ALANINE AMINOTRANSFERASE 29 Units/L (12-78); ALBUMIN 3.2 g/dL (3.4-5.0); ALKALINE PHOSPHATASE 76 Units/L (46-116); ASPARTATE AMINO TRANSFERASE 19 Units/L (15-37); BLOOD UREA NITROGEN 6 mg/dL (7-18); CARBON DIOXIDE 34.4 mmol/L (21-32); CHLORIDE 100 mmol/L (98-107); COR CA(FOR HYPOALB) 9.6 mg/dL (8.5-10.1); COR NA(FOR HYPERGLY) 143 mmol/L (136-145); CREATININE 0.74 mg/dL (0.55-1.02); SODIUM 137 mmol/L (136-145); TOTAL PROTEIN 7.4 g/dL (6.4-8.2); eGFR NON BLACK RACES > 60 (>60)
[2019-07-18] MEDS: PULMICORT NEB TX 0.5 MG NEB SCH ×2 (09:13→20:20)
[2019-07-18] MEDS: LEVAQUIN PREMIX IV 750 MG 750 MG/150 ML BAG IV SCH (09:35)
[2019-07-18] MEDS: ROBITUSSIN DM PO SCH ×4 (09:35→20:22)
[2019-07-18] MEDS: VSL#3 PO SCH (09:35)
--- NOTE | 2019-07-18 09:55 | DR.H&P ---
H&P - History & Physical for Day of: H&P Date: 07/17/19 - Chief Complaint Chief Complaint: COUGH, SOB, HTN - History of Present Illness History of Present Illness: IS A 53 YEAR OLD PATIENT OF OURS WHO PRESENTED TO THE ER A DIRECT ADMISSION DUE TO COMPLAINTS OF A PRODUCTIVE COUGH, SHORTNESS OF BREATH, FEVER, AND INCREASED BLOOD PRESSURE. SHE REPORTS THAT OXYGEN SATURATIONS HAVE BEEN IN THE 80S. SHE WAS PLACED ON CIPRO 500MG PO BID AND KEFLEX 500MG PO BID ONE WEEK AGO. SHE DENIES IMPROVEMENT IN SYMPTOMS. ON ARRIVAL TO THE HOSPITAL, VITALS WERE 97.9-92-20-95%-145/84. LABS WERE OBTAINED. ABNORMAL LAB VALUES INCLUDE THE FOLLOWING: WBC 11.0, SODIUM 134, CHLORIDE 97, CARBON DIOXIDE 32.5, GLUCOSE 341. BLOOD CULTURES OBTAINED. A CHEST XRAY WAS OBTAINED AND REVEALED: The trachea is midline. The cardiac silhouette is unremarkable . The lungs are clear without focal infiltrate or effusion. The bony thorax is unremarkable. SHE WAS STARTED ON IV FORTAZ, IV LEVAQUIN, RESPIRATORY TX, SUPPLEMENTAL OXYGEN, AND 1/2NS AT 75 ML/HR. OTHERWISE, WE PLAN TO FOLLOW UP WITH AM LABS AND CHEST XRAY AND CONTINUE TO MONITOR. - Past Medical History Past Medical History: Hypertension, Diabetes - Past Surgical History Surgical History: , Hysterectomy, Ortho Surgery, Other, Tonsillectomy - Family History Family Medical History: Diabetes Mellitus, Cancer - Social History Does patient currently use any type of tobacco product: No Have you used tobacco products in the last 12 months: No Type of Tobacco Use: None Does any household member use tobacco: No Alcohol Use: None Drug Use: None - Medications Home Medications: No Known Drug Allergies Allergy (Verified 06/10/17 12:12) CONTINUE taking the following medications carisoprodol 350 mg PO TID 07/17/19 [History] cephalexin 500 mg PO BID 07/17/19 [History] clonazepam 2 mg PO QID 07/17/19 [History] cyclobenzaprine 10 mg PO TID 07/17/19 [History] oxycodone-acetaminophen 1 tab PO QID PRN 07/17/19 [History] quetiapine 300 mg PO HS 07/17/19 [History] - Review of Systems Constitutional: Fever, Weakness Eyes: No Symptoms Reported ENT: No Symptoms Reported Respiratory: See HPI, Cough, Shortness of Breath, SOB with Excertion Cardiovascular: No Symptoms Reported Gastrointestinal: No Symptoms Reported Genitourinary: No Symptoms Reported Musculoskeletal: No Symptoms Reported Skin: No Symptoms Reported Neurological: Weakness - Physical Exam Vital Signs: Temperature 98.2 F Pulse Rate [Left Brachial] 96 Pulse Rate 96 Respiratory Rate 20 Blood Pressure [Left Arm] 130/72 Blood Pressure [Right Arm] 120/69 Blood Pressure 152/88 O2 Sat by Pulse Oximetry 93 Oriented: Normal Eyes: Normal Ear: Normal Nose: Normal Throat: Normal Respiratory: Wheezes Throughout Cardiovascular: Normal. negative: S3, S4, Murmur, Edema : Normal Auscultation: Bowel Sounds: Normal Palpation: Normal Tenderness: Normal Skin: Normal Musculoskeletal: Normal Psychiatric: Normal Mood Description: Calm Affect: Normal Speech Pattern: Clear - Assessment/Plan (1) Bronchopneumonia Status: Acute Plan: IV FORTAZ, IV LEVAQUIN, RESPIRATORY TX, SUPPLEMENTAL OXYGEN, AND 1/2NS AT 75 ML/HR. - Allergies Allergies/Adverse Reactions: Allergies Allergy/AdvReac Type Severity Reaction Status Date / Time No Known Drug Allergies Allergy Verified 06/10/17 12:12
[2019-07-18] MEDS ORDERED: PERCOCET TAB 5/325 MG PO PRN (09:56)
[2019-07-18] MEDS ORDERED: ZOLOFT PO ONE (11:17)
[2019-07-18] MEDS: COZAAR PO SCH (11:20)
[2019-07-18] MEDS: ZOLOFT PO SCH (11:20)
[2019-07-18] MEDS: INSULIN DEGLUDEC 55 UNIT SUBCUT SCH (11:21)
[2019-07-18] MEDS: LOVENOX INJ 40 MG SYR SC SCH (11:22)
[2019-07-18] MEDS: KLONOPIN TAB 1 MG PO SCH ×3 (13:26→20:20)
[2019-07-18] MEDS: FLEXERIL TAB 10 MG PO SCH ×2 (13:27→21:02)
[2019-07-18] MEDS ORDERED: SOMA TAB 350 MG PO SCH (14:00)
[2019-07-18] MEDS: SNACK - Diabetic Appropriate PO SCH (20:19)
[2019-07-18] MEDS: LAMICTAL TAB 100 MG PO SCH (20:21)
[2019-07-19] MEDS: DUONEB 0.5 MG/3 MG (3 mL) NEB SCH ×6 (01:30→19:56)
[2019-07-19] MEDS ORDERED: NS 1/2 1000 ML IV 1,000 ML IV ONE ×2 (03:37→17:42)
[2019-07-19] MEDS: NS 1/2 1000 ML IV 1,000 ML IV SCH ×3 (03:38→17:48)
[2019-07-19] MEDS: FLEXERIL TAB 10 MG PO SCH ×3 (06:02→21:34)
[2019-07-19] MEDS: FORTAZ or TAZICEF VIAL INJ 1 G in NS 100 ML IV + SPIKE MINIBAG* 100 ML IV SCH ×3 (06:02→21:33)
[2019-07-19] MEDS: HumuLIN R SC PRN ×4 (06:03→21:09)
[2019-07-19 06:33] LABS: BASOPHILS % (AUTO) 0.4 % (0.2-1.0); EOSINOPHILS # (AUTO) 0.3 x10^3/uL (0.0-0.2); EOSINOPHILS % (AUTO) 3.5 % (0.9-2.9); HEMATOCRIT 38.1 % (36.0-47.0); HEMOGLOBIN 12.6 g/dL (12.0-16.0); LYMPHOCYTES # (AUTO) 3.7 X10^3/uL (1.3-2.9); LYMPHOCYTES % (AUTO) 41.2 % (21.0-51.0); MEAN CORPUSCULAR HEMOGLOBIN 28.5 pg (27.0-34.0); MEAN CORPUSCULAR HGB CONC 33.1 g/dL (33.0-35.0); MEAN CORPUSCULAR VOLUME 86.1 fL (80.0-100.0); MONOCYTES # (AUTO) 0.9 x10^3/uL (0.3-0.8); MONOCYTES % (AUTO) 10.4 % (0.0-13.0); NEUTROPHILS % (AUTO) 44.5 % (42.0-75.0); PLATELET COUNT 268 X10^3/uL (150.0-450.0); RED BLOOD COUNT 4.42 X10^6/uL (3.5-5.4); RED CELL DISTRIBUTION WIDTH 13.9 % (11.6-16.5); WHITE BLOOD COUNT 8.9 X10^3/uL (3.6-10.0)
--- NOTE | 2019-07-19 06:41 | RAD ---
HISTORYShortness of breathSTUDYCHEST, 1 VIEWCOMPARISONFebruary 2019FINDINGSThe heart is within normal limits in size. The raffy are normal. The lung ramos are clear. The right hemidiaphragm is elevated. There is minimal subsegmental atelectasis in the left midlung. Bony thorax is unremarkable.IMPRESSIONNo acute infiltratesMinimal subsegmental atelectasis left midlungElectronically signed by: JENN FRANKLIN (Jul 19, 2019 06:39:53)
[2019-07-19 07:03] LABS: ALANINE AMINOTRANSFERASE 28 Units/L (12-78); ALBUMIN 2.8 g/dL (3.4-5.0); ALKALINE PHOSPHATASE 70 Units/L (46-116); ASPARTATE AMINO TRANSFERASE 22 Units/L (15-37); BLOOD UREA NITROGEN 9 mg/dL (7-18); CALCIUM 8.3 mg/dL (8.5-10.1); CARBON DIOXIDE 32.9 mmol/L (21-32); CHLORIDE 102 mmol/L (98-107); COR CA(FOR HYPOALB) 9.3 mg/dL (8.5-10.1); COR NA(FOR HYPERGLY) 145 mmol/L (136-145); CREATININE 0.77 mg/dL (0.55-1.02); SODIUM 139 mmol/L (136-145); TOTAL PROTEIN 6.7 g/dL (6.4-8.2); eGFR NON BLACK RACES > 60 (>60)
[2019-07-19] MEDS ORDERED: ZOLOFT PO ONE (08:42)
[2019-07-19] MEDS: PULMICORT NEB TX 0.5 MG NEB SCH ×2 (08:44→19:56)
[2019-07-19] MEDS: LOVENOX INJ 40 MG SYR SC SCH (09:03)
[2019-07-19] MEDS: ROBITUSSIN DM PO SCH ×4 (09:04→20:43)
[2019-07-19] MEDS: ZOLOFT PO SCH (09:05)
[2019-07-19] MEDS: LEVAQUIN PREMIX IV 750 MG 750 MG/150 ML BAG IV SCH (09:06)
[2019-07-19] MEDS: VSL#3 PO SCH (09:13)
[2019-07-19] MEDS: KLONOPIN TAB 1 MG PO SCH ×4 (09:13→20:44)
[2019-07-19] MEDS: COZAAR PO SCH (09:16)
[2019-07-19] MEDS: INSULIN DEGLUDEC 55 UNIT SUBCUT SCH (09:16)
[2019-07-19] MEDS: LAMICTAL TAB 100 MG PO SCH (20:44)
[2019-07-19] MEDS: SNACK - Diabetic Appropriate PO SCH (20:44)
--- NOTE | 2019-07-19 21:37 | PCM.PROG ---
Progress Note - Progress Note for Day of Date of Exam: 07/19/19 - Subjective Subjective: IS BEING TREATED FOR BRONCHOPNEUMONIA. TODAY, SHE IS ALERT AND ORIENTED, LYING IN BED ON MORNING ROUNDS. SHE CONTINUES WITH COMPLAINTS OF COUGH AND SHORTNESS OF BREATH. ON EXAMINATION, HEART IS REGULAR IN RATE AND RHYTHM. BILATERAL LUNGS ARE NOTED WITH SCATTERED WHEEZING. ABDOMEN IS ROUND, SOFT, AND NON-TENDER WITH NORMAL BOWEL SOUNDS NOTED IN ALL QUADRANTS. HER VITALS THIS MORNING ARE: 98.3-80-20-97%-100/58. LABS WERE OBTAINED. ABNORMAL LAB VALUES INCLUDE THE FOLLOWING: CARBON DIOXIDE 32.9, GLUCOSE 359, CALCIUM 8.3, ALBUMIN 2.8. SPUTUM AND BLOOD CULTURES ARE PENDING. A CHEST XRAY WAS OBTAINED AND REVEALED: No acute infiltrates. Minimal subsegmental atelectasis left midl humphrey. SHE IS CURRENTLY RECEIVING IV FORTAZ, IV LEVAQUIN, RESPIRATORY TX, SUPPLEMENTAL OXYGEN, NS AT 75 ML/HR, AND HOME MEDICATIONS WERE RESUMED. WE WILL CONTINUE WITH CURRENT PLAN OF CARE TODAY. OTHERWISE, WE WILL FOLLOW UP WITH AM LABS AND CONTINUE TO MONITOR. - Past Medical Family Social History Past Med/Fam/Surg Hx: No changes since H&P Allergies: Allergies No Known Drug Allergies Allergy (Verified 06/10/17 12:12) - Review of Systems ROS: No change since H&P - Vital Signs and I&O's Vital Signs: Temperature 98 F Pulse Rate [Right Brachial] 107 Pulse Rate [Left Brachial] 96 Pulse Rate 110 Respiratory Rate 20 Blood Pressure [Left Arm] 130/72 Blood Pressure [Right Arm] 129/80 Blood Pressure 152/88 O2 Sat by Pulse Oximetry 95 Intake and Output: Intake & Output 07/17/19 07/18/19 07/19/19 07/20/19 11:59 11:59 11:59 11:59 Intake Total 2385 / 2385 2785 / 2785 1620 / 1620 Balance 2385 / 2385 2785 / 2785 1620 / 1620 - Physical Exam Oriented: Normal Eyes: Normal Ear: Normal Nose: Normal Throat: Normal Cardiovascular: Normal. negative: S3, S4, Murmur, Edema : Normal Auscultation: Bowel Sounds: Normal Palpation: Normal Tenderness: Normal Skin: Normal Musculoskeletal: Normal Psychiatric: Normal Mood Description: Calm Affect: Normal Speech Pattern: Clear, Appropriate - Laboratory and Diagnostics Result Diagrams: 07/19/19 05:46 07/19/19 17:15 Labs: 07/19/19 10:47 Sputum - Expectorated Sputum - Final 07/17/19 15:39 Blood Blood Culture - Preliminary 07/17/19 15:37 Blood Blood Culture - Preliminary Laboratory WBC 8.9 X10^3/uL (3.6-10.0) 07/19/19 05:46 RBC 4.42 X10^6/uL (3.5-5.4) 07/19/19 05:46 Hgb 12.6 g/dL (12.0-16.0) 07/19/19 05:46 Hct 38.1 % (36.0-47.0) 07/19/19 05:46 MCV 86.1 fL (80.0-100.0) 07/19/19 05:46 MCH 28.5 pg (27.0-34.0) 07/19/19 05:46 MCHC 33.1 g/dL (33.0-35.0) 07/19/19 05:46 RDW 13.9 % (11.6-16.5) 07/19/19 05:46 Plt Count 268 X10^3/uL (150.0-450.0) 07/19/19 05:46 MPV 8.0 fL (7.4-11.0) 07/19/19 05:46 Neut % (Auto) 44.5 % (42.0-75.0) 07/19/19 05:46 Lymph % (Auto) 41.2 % (21.0-51.0) 07/19/19 05:46 [place] % (Auto) 10.4 % (0.0-13.0) 07/19/19 05:46 Eos % (Auto) 3.5 % (0.9-2.9) H 07/19/19 05:46 Baso % (Auto) 0.4 % (0.2-1.0) 07/19/19 05:46 Neut # (Auto) 4.0 x10^3/uL (2.2-4.8) 07/19/19 05:46 Lymph # (Auto) 3.7 X10^3/uL (1.3-2.9) H 07/19/19 05:46 [place] # (Auto) 0.9 x10^3/uL (0.3-0.8) H 07/19/19 05:46 Eos # (Auto) 0.3 x10^3/uL (0.0-0.2) H 07/19/19 05:46 Baso # (Auto) 0.0 X10^3/uL (0.0-0.1) 07/19/19 05:46 Absolute Nucleated RBC 0.0 /100WBC 07/19/19 05:46 Sodium 139 mmol/L (136-145) 07/19/19 05:46 Corrected Sodium 145 mmol/L (136-145) 07/19/19 05:46 Potassium 3.9 mmol/L (3.5-5.1) 07/19/19 05:46 Chloride 102 mmol/L (98-107) 07/19/19 05:46 Carbon Dioxide 32.9 mmol/L (21-32) H 07/19/19 05:46 BUN 9 mg/dL (7-18) 07/19/19 05:46 Creatinine 0.77 mg/dL (0.55-1.02) 07/19/19 05:46 Est GFR (MDRD) Af Amer > 60 (>60) 07/19/19 05:46 Est GFR (MDRD) Non-Af > 60 (>60) 07/19/19 05:46 Glucose 432 mg/dL (65-99) H 07/19/19 17:15 POC Glucose (mg/dL) 368 mg/dL (65-99) H 07/19/19 20:19 Calcium 8.3 mg/dL (8.5-10.1) L 07/19/19 05:46 Corrected Calcium 9.3 mg/dL (8.5-10.1) 07/19/19 05:46 Total Bilirubin 0.20 mg/dL (0.2-1.0) 07/19/19 05:46 AST 22 Units/L (15-37) 07/19/19 05:46 ALT 28 Units/L (12-78) 07/19/19 05:46 Alkaline Phosphatase 70 Units/L (46-116) 07/19/19 05:46 Total Protein 6.7 g/dL (6.4-8.2) 07/19/19 05:46 Albumin 2.8 g/dL (3.4-5.0) L 07/19/19 05:46 Globulin 3.9 g/dL (2.5-4.5) 07/19/19 05:46 Albumin/Globulin Ratio 0.7 Ratio (1.1-2.1) L 07/19/19 05:46 Influenza Type A (PCR) Negative (NEGATIVE) 07/17/19 17:50 Influenza Type B (PCR) Negative (NEGATIVE) 07/17/19 17:50 - Plan (1) Bronchopneumonia Status: Acute Plan: IV FORTAZ, IV LEVAQUIN, RESPIRATORY TX, SUPPLEMENTAL OXYGEN, AND 1/2NS AT 75 ML/HR.
[2019-07-20] MEDS: DUONEB 0.5 MG/3 MG (3 mL) NEB SCH ×6 (01:16→20:37)
[2019-07-20] MEDS ORDERED: NS 1/2 1000 ML IV 1,000 ML IV ONE ×3 (02:36→20:00)
[2019-07-20] MEDS: NS 1/2 1000 ML IV 1,000 ML IV SCH ×3 (02:51→21:48)
[2019-07-20] MEDS: FORTAZ or TAZICEF VIAL INJ 1 G in NS 100 ML IV + SPIKE MINIBAG* 100 ML IV SCH ×3 (05:41→21:19)
[2019-07-20] MEDS: FLEXERIL TAB 10 MG PO SCH ×3 (05:41→21:19)
[2019-07-20 06:07] LABS: BASOPHILS % (AUTO) 0.3 % (0.2-1.0); EOSINOPHILS # (AUTO) 0.4 x10^3/uL (0.0-0.2); EOSINOPHILS % (AUTO) 4.5 % (0.9-2.9); HEMATOCRIT 38.1 % (36.0-47.0); HEMOGLOBIN 12.7 g/dL (12.0-16.0); LYMPHOCYTES # (AUTO) 3.7 X10^3/uL (1.3-2.9); LYMPHOCYTES % (AUTO) 42.2 % (21.0-51.0); MEAN CORPUSCULAR HEMOGLOBIN 28.3 pg (27.0-34.0); MEAN CORPUSCULAR HGB CONC 33.3 g/dL (33.0-35.0); MEAN CORPUSCULAR VOLUME 85.2 fL (80.0-100.0); MEAN PLATELET VOLUME 7.5 fL (7.4-11.0); MONOCYTES # (AUTO) 0.7 x10^3/uL (0.3-0.8); MONOCYTES % (AUTO) 7.7 % (0.0-13.0); NEUTROPHILS % (AUTO) 45.3 % (42.0-75.0); PLATELET COUNT 283 X10^3/uL (150.0-450.0); RED BLOOD COUNT 4.47 X10^6/uL (3.5-5.4); WHITE BLOOD COUNT 8.8 X10^3/uL (3.6-10.0)
--- NOTE | 2019-07-20 06:15 | RAD ---
HISTORYShortness of breathSTUDYCHEST, 1 VIEWCOMPARISONFebruary 2019FINDINGSThe heart is within normal limits in size. The raffy are normal. The lungs are mildly hypoinflated but free of acute infiltrates. There is subsegmental atelectasis in the right lung base. The right hemidiaphragm remains elevated. No pleural effusions are identified. Bony thorax is unremarkable.IMPRESSIONLungs hypoinflated but free of acute infiltratesSubsegmental atelectasis right lung baseElevated right hemidiaphragm, chronicElectronically signed by: JENN FRANKLIN (Jul 20, 2019 06:13:49)
[2019-07-20 06:26] LABS: ALANINE AMINOTRANSFERASE 28 Units/L (12-78); ALBUMIN 2.9 g/dL (3.4-5.0); ALKALINE PHOSPHATASE 69 Units/L (46-116); ASPARTATE AMINO TRANSFERASE 20 Units/L (15-37); BLOOD UREA NITROGEN 8 mg/dL (7-18); CALCIUM 8.6 mg/dL (8.5-10.1); CARBON DIOXIDE 31.5 mmol/L (21-32); CHLORIDE 104 mmol/L (98-107); COR CA(FOR HYPOALB) 9.5 mg/dL (8.5-10.1); COR NA(FOR HYPERGLY) 143 mmol/L (136-145); CREATININE 0.65 mg/dL (0.55-1.02); SODIUM 141 mmol/L (136-145); TOTAL PROTEIN 6.8 g/dL (6.4-8.2); eGFR NON BLACK RACES > 60 (>60)
[2019-07-20] MEDS ORDERED: MICRO K EXTEN CAP 10 MEQ PO PRN (06:30)
[2019-07-20] MEDS ORDERED: KLOR-CON PO PRN (06:30)
[2019-07-20] MEDS ORDERED: K-DUR TAB 20 MEQ PO PRN (06:30)
[2019-07-20] MEDS ORDERED: POTASSIUM CHLORIDE LIQ 20 MEQ UDC PO PRN (06:30)
[2019-07-20] MEDS ORDERED: K-RIDER 10 MEQ/NS 100 ML 10 MEQ/100 ML BAG IV PRN (06:30)
[2019-07-20] MEDS ORDERED: POTASSIUM CHL 40 MEQ/NS 0.45% 500 ML IV PRN (06:30)
[2019-07-20] MEDS ORDERED: POTASSIUM CHL 60 MEQ/NS 0.45% 500 ML IV PRN (06:30)
[2019-07-20] MEDS: PULMICORT NEB TX 0.5 MG NEB SCH ×2 (08:51→20:37)
[2019-07-20] MEDS ORDERED: ZOLOFT PO ONE (09:01)
[2019-07-20] MEDS: LOVENOX INJ 40 MG SYR SC SCH (09:27)
[2019-07-20] MEDS: ZOLOFT PO SCH (09:28)
[2019-07-20] MEDS: ROBITUSSIN DM PO SCH ×4 (09:28→20:23)
[2019-07-20] MEDS: VSL#3 PO SCH (09:28)
[2019-07-20] MEDS: COZAAR PO SCH (09:28)
[2019-07-20] MEDS: KLONOPIN TAB 1 MG PO SCH ×4 (09:28→20:22)
[2019-07-20] MEDS: LEVAQUIN PREMIX IV 750 MG 750 MG/150 ML BAG IV SCH (09:29)
[2019-07-20] MEDS: INSULIN DEGLUDEC 55 UNIT SUBCUT SCH (09:35)
[2019-07-20] MEDS: GENTAMICIN TOPICAL OINT TOP SCH ×2 (12:15→21:18)
[2019-07-20] MEDS: NYSTATIN POWDER TOP SCH ×2 (12:15→21:18)
[2019-07-20] MEDS: HumuLIN R SC PRN ×2 (17:17→20:26)
[2019-07-20] MEDS: LAMICTAL TAB 100 MG PO SCH (20:23)
[2019-07-20] MEDS: SNACK - Diabetic Appropriate PO SCH (21:19)
[2019-07-21] MEDS: DUONEB 0.5 MG/3 MG (3 mL) NEB SCH ×3 (00:30→08:46)
[2019-07-21] MEDS ORDERED: NS 1/2 1000 ML IV 1,000 ML IV ONE (04:15)
[2019-07-21] MEDS: NS 1/2 1000 ML IV 1,000 ML IV SCH (04:20)
[2019-07-21] MEDS: FLEXERIL TAB 10 MG PO SCH (05:18)
[2019-07-21] MEDS: FORTAZ or TAZICEF VIAL INJ 1 G in NS 100 ML IV + SPIKE MINIBAG* 100 ML IV SCH (05:19)
[2019-07-21] MEDS: HumuLIN R SC PRN (05:39)
[2019-07-21 06:44] LABS: ALANINE AMINOTRANSFERASE 29 Units/L (12-78); ALBUMIN 2.8 g/dL (3.4-5.0); ALKALINE PHOSPHATASE 65 Units/L (46-116); ASPARTATE AMINO TRANSFERASE 21 Units/L (15-37); BLOOD UREA NITROGEN 7 mg/dL (7-18); CALCIUM 8.5 mg/dL (8.5-10.1); CARBON DIOXIDE 32.2 mmol/L (21-32); CHLORIDE 103 mmol/L (98-107); COR CA(FOR HYPOALB) 9.5 mg/dL (8.5-10.1); COR NA(FOR HYPERGLY) 143 mmol/L (136-145); CREATININE 0.67 mg/dL (0.55-1.02); SODIUM 140 mmol/L (136-145); TOTAL PROTEIN 6.7 g/dL (6.4-8.2); eGFR NON BLACK RACES > 60 (>60)
[2019-07-21 07:12] LABS: BASOPHILS % (AUTO) 0.3 % (0.2-1.0); EOSINOPHILS # (AUTO) 0.4 x10^3/uL (0.0-0.2); EOSINOPHILS % (AUTO) 4.4 % (0.9-2.9); HEMATOCRIT 37.5 % (36.0-47.0); HEMOGLOBIN 12.4 g/dL (12.0-16.0); LYMPHOCYTES # (AUTO) 3.4 X10^3/uL (1.3-2.9); LYMPHOCYTES % (AUTO) 38.9 % (21.0-51.0); MEAN CORPUSCULAR HEMOGLOBIN 28.3 pg (27.0-34.0); MEAN CORPUSCULAR VOLUME 85.9 fL (80.0-100.0); MEAN PLATELET VOLUME 7.9 fL (7.4-11.0); MONOCYTES # (AUTO) 0.5 x10^3/uL (0.3-0.8); MONOCYTES % (AUTO) 6.1 % (0.0-13.0); NEUTROPHILS # (AUTO) 4.4 x10^3/uL (2.2-4.8); NEUTROPHILS % (AUTO) 50.3 % (42.0-75.0); PLATELET COUNT 268 X10^3/uL (150.0-450.0); RED BLOOD COUNT 4.37 X10^6/uL (3.5-5.4); RED CELL DISTRIBUTION WIDTH 13.7 % (11.6-16.5); WHITE BLOOD COUNT 8.7 X10^3/uL (3.6-10.0)
[2019-07-21] MEDS ORDERED: MAGNESIUM SULFATE 1 GRAM/100 mL PREMIX 1 GM/100 ML BAG IV PRN (07:55)
[2019-07-21] MEDS ORDERED: ZOLOFT PO ONE (08:02)
--- NOTE | 2019-07-21 08:05 | RAD ---
HISTORYSOBSTUDYAP [id number]/2020FINDINGSStable heart size. Clear left lung. Persistent elevation of right diaphragm, limiting evaluation of the right lower lobe. The previously described basal atelectasis is not well visualized. Radiographic detail suboptimal on this exam.IMPRESSIONApparent radiographic improvement in right basal atelectasis since 1 day earlier. See above technical reservations.Electronically signed by: HERRERA DE LA FUENTE (Jul 21, 2019 08:04:27)
[2019-07-21] MEDS: ZOLOFT PO SCH (08:43)
[2019-07-21] MEDS: VSL#3 PO SCH (08:43)
[2019-07-21] MEDS: ROBITUSSIN DM PO SCH (08:44)
[2019-07-21] MEDS: LOVENOX INJ 40 MG SYR SC SCH (08:44)
[2019-07-21] MEDS: COZAAR PO SCH (08:44)
[2019-07-21] MEDS: KLONOPIN TAB 1 MG PO SCH (08:44)
[2019-07-21] MEDS: PULMICORT NEB TX 0.5 MG NEB SCH (08:46)
[2019-07-21] MEDS: GENTAMICIN TOPICAL OINT TOP SCH (08:53)
[2019-07-21] MEDS: NYSTATIN POWDER TOP SCH (08:53)
[2019-07-21] MEDS: INSULIN DEGLUDEC 55 UNIT SUBCUT SCH (08:56)
[2019-07-21] MEDS: LEVAQUIN PREMIX IV 750 MG 750 MG/150 ML BAG IV SCH (08:56)
[2019-07-21 09:15] VITALS: BP 140/92
== END 2019-07-21 11:40 | disposition home or self-care (01) | DRG 195 ==
LOC: MED/SURG 14:14
PROVIDERS: ADMIT Internal Medicine; ATTEND Internal Medicine
DX: E11.65 Type 2 diabetes mellitus with hyperglycemia; J18.0 Bronchopneumonia, unspecified organism; I10 Essential (primary) hypertension; R06.02 Shortness of breath
CPT/HCPCS: 36415; 71010; 71020; 71045; 71046; 80053; 82947; 83735; 85025; 87040; 87070; 87075; 87205; 87502; 94640; 94760; A4222; J0713; J1650; J1815; J1956; J7050; J7620; J7626

== ENCOUNTER 2019-11-28 16:09 | Inpatient (IN) ==
[2019-11-28] MEDS ORDERED: TUSSIONEX PENNKINETIC SUSP PO PRN (20:24)
[2019-11-28 20:48] LABS: BASOPHILS # (AUTO) 0.1 X10^3/uL (0.0-0.1); BASOPHILS % (AUTO) 0.5 % (0.2-1.0); EOSINOPHILS # (AUTO) 0.2 x10^3/uL (0.0-0.2); EOSINOPHILS % (AUTO) 1.4 % (0.9-2.9); HEMATOCRIT 41.2 % (36.0-47.0); HEMOGLOBIN 13.6 g/dL (12.0-16.0); LYMPHOCYTES # (AUTO) 4.1 X10^3/uL (1.3-2.9); LYMPHOCYTES % (AUTO) 29.8 % (21.0-51.0); MEAN CORPUSCULAR HEMOGLOBIN 28.5 pg (27.0-34.0); MEAN CORPUSCULAR VOLUME 86.4 fL (80.0-100.0); MEAN PLATELET VOLUME 7.7 fL (7.4-11.0); MONOCYTES # (AUTO) 1.1 x10^3/uL (0.3-0.8); MONOCYTES % (AUTO) 8.3 % (0.0-13.0); NEUTROPHILS # (AUTO) 8.2 x10^3/uL (2.2-4.8); PLATELET COUNT 344 X10^3/uL (150.0-450.0); RED BLOOD COUNT 4.77 X10^6/uL (3.5-5.4); RED CELL DISTRIBUTION WIDTH 14.2 % (11.6-16.5); WHITE BLOOD COUNT 13.6 X10^3/uL (3.6-10.0)
[2019-11-28] MEDS: HumuLIN R SUBCUT PRN (20:52)
[2019-11-28] MEDS ORDERED: SALINE 3% 15 ML NEB TX ONE (20:56)
[2019-11-28] MEDS ORDERED: NS 1/2 1000 ML IV 1,000 ML IV ONE (20:59)
[2019-11-28] MEDS ORDERED: VSL#3 PO ONE (21:00)
[2019-11-28] MEDS ORDERED: SALINE 3% 15 ML NEB TX NEB ONE (21:00)
[2019-11-28] MEDS: DUONEB 0.5 MG/3 MG (3 mL) NEB SCH (21:00)
[2019-11-28 21:08] LABS: ALANINE AMINOTRANSFERASE 24 Units/L (12-78); ALBUMIN 3.4 g/dL (3.4-5.0); ALKALINE PHOSPHATASE 75 Units/L (46-116); ASPARTATE AMINO TRANSFERASE 14 Units/L (15-37); BLOOD UREA NITROGEN 15 mg/dL (7-18); CALCIUM 9.4 mg/dL (8.5-10.1); CARBON DIOXIDE 33.7 mmol/L (21-32); CHLORIDE 97 mmol/L (98-107); CKMB % 2.3 % (<4); COR NA(FOR HYPERGLY) 139 mmol/L (136-145); CREATINE KINASE 43 Units/L (26-192); CREATINE KINASE MB < 1.0 ng/mL (0-4.0); CREATININE 0.92 mg/dL (0.55-1.02); SODIUM 134 mmol/L (136-145); TROPONIN I < 0.02 ng/mL (0-1.5); eGFR NON BLACK RACES > 60 (>60)
[2019-11-28] MEDS: ROBITUSSIN DM PO SCH (21:11)
[2019-11-28] MEDS: NS 1/2 1000 ML IV 1,000 ML IV SCH (21:11)
[2019-11-28] MEDS: VSL#3 PO SCH (21:11)
[2019-11-28] MEDS: LEVAQUIN PREMIX IV 500 MG 500 MG/100 ML BAG IV SCH (21:12)
[2019-11-28] MEDS ORDERED: TYLENOL 325 MG TAB PO PRN (23:20)
[2019-11-29 02:34] LABS: CKMB % 2.4 % (<4); CREATINE KINASE 42 Units/L (26-192); CREATINE KINASE MB < 1.0 ng/mL (0-4.0); TROPONIN I < 0.02 ng/mL (0-1.5)
[2019-11-29] MEDS: HumuLIN R SUBCUT PRN ×3 (05:54→21:48)
[2019-11-29 06:17] LABS: BASOPHILS % (AUTO) 0.4 % (0.2-1.0); EOSINOPHILS # (AUTO) 0.2 x10^3/uL (0.0-0.2); HEMATOCRIT 39.6 % (36.0-47.0); HEMOGLOBIN 12.9 g/dL (12.0-16.0); LYMPHOCYTES # (AUTO) 4.6 X10^3/uL (1.3-2.9); MEAN CORPUSCULAR HEMOGLOBIN 28.2 pg (27.0-34.0); MEAN CORPUSCULAR HGB CONC 32.5 g/dL (33.0-35.0); MEAN CORPUSCULAR VOLUME 86.8 fL (80.0-100.0); MEAN PLATELET VOLUME 7.8 fL (7.4-11.0); MONOCYTES # (AUTO) 0.9 x10^3/uL (0.3-0.8); MONOCYTES % (AUTO) 7.9 % (0.0-13.0); NEUTROPHILS % (AUTO) 50.7 % (42.0-75.0); PLATELET COUNT 319 X10^3/uL (150.0-450.0); RED BLOOD COUNT 4.56 X10^6/uL (3.5-5.4); RED CELL DISTRIBUTION WIDTH 14.2 % (11.6-16.5); WHITE BLOOD COUNT 11.9 X10^3/uL (3.6-10.0)
[2019-11-29 06:18] LABS: ALANINE AMINOTRANSFERASE 22 Units/L (12-78); ALBUMIN 3.1 g/dL (3.4-5.0); ALKALINE PHOSPHATASE 68 Units/L (46-116); ASPARTATE AMINO TRANSFERASE 13 Units/L (15-37); BLOOD UREA NITROGEN 13 mg/dL (7-18); CALCIUM 8.8 mg/dL (8.5-10.1); CARBON DIOXIDE 31.5 mmol/L (21-32); CHLORIDE 100 mmol/L (98-107); CHOLESTEROL 171 mg/dL (0-200); COR CA(FOR HYPOALB) 9.5 mg/dL (8.5-10.1); COR NA(FOR HYPERGLY) 140 mmol/L (136-145); CREATININE 0.68 mg/dL (0.55-1.02); HDL CHOLESTEROL 34 mg/dL (40-60); SODIUM 136 mmol/L (136-145); TOTAL PROTEIN 7.2 g/dL (6.4-8.2); TRIGLYCERIDES 169 mg/dL (0-150); eGFR NON BLACK RACES > 60 (>60)
[2019-11-29] MEDS ORDERED: POTASSIUM CHLORIDE LIQ 20 MEQ UDC PO PRN (07:25)
[2019-11-29] MEDS ORDERED: MICRO K EXTEN CAP 10 MEQ PO PRN (07:25)
[2019-11-29] MEDS ORDERED: KLOR-CON PO PRN (07:25)
--- NOTE | 2019-11-29 08:05 | RAD ---
HISTORYPNEUMONIASTUDYCHEST x-ray, PA/LAT ADULTCOMPARISONX-ray 11/28/2019FINDINGSThe trachea is midline. The cardiac silhouette is unremarkable .Lungs appear clear. No pneumothorax or pleural effusion is seen.No acute bony abnormality is seen.IMPRESSIONNo acute cardiopulmonary abnormality is seen.Electronically signed by: Gab Alonzo (Nov 29, 2019 08:03:38)
[2019-11-29] MEDS: VSL#3 PO SCH (08:40)
[2019-11-29] MEDS: K-DUR TAB 20 MEQ PO PRN (08:41)
[2019-11-29] MEDS: ROBITUSSIN DM PO SCH ×4 (08:41→21:36)
[2019-11-29] MEDS: DUONEB 0.5 MG/3 MG (3 mL) NEB SCH ×4 (08:53→20:30)
[2019-11-29 09:05] LABS: CKMB % 2.4 % (<4); CREATINE KINASE 41 Units/L (26-192); CREATINE KINASE MB < 1.0 ng/mL (0-4.0); TROPONIN I < 0.02 ng/mL (0-1.5)
[2019-11-29 10:05] VITALS: BMI 43.5
[2019-11-29] MEDS ORDERED: ZOFRAN TAB 4 MG PO PRN (10:05)
[2019-11-29] MEDS ORDERED: INSULIN DEGLUDEC 55 UNIT SUBCUT SCH (10:15)
[2019-11-29] MEDS ORDERED: ZOLOFT PO ONE (12:03)
[2019-11-29] MEDS ORDERED: NS 1/2 1000 ML IV 1,000 ML IV ONE (12:04)
[2019-11-29] MEDS: NS 1/2 1000 ML IV 1,000 ML IV SCH (12:15)
[2019-11-29] MEDS: MAGNESIUM SULFATE 1 GRAM/100 mL PREMIX 1 GM/100 ML BAG IV PRN ×2 (12:15→13:15)
[2019-11-29] MEDS: LOVENOX INJ 40 MG SYR SC SCH (12:17)
[2019-11-29] MEDS: LANTUS SC SCH (12:17)
[2019-11-29] MEDS: COZAAR PO SCH (12:18)
[2019-11-29] MEDS: KLONOPIN TAB 1 MG PO PRN (12:18)
[2019-11-29] MEDS: COREG TAB 6.25 MG PO SCH ×2 (12:18→21:45)
[2019-11-29] MEDS: ZOLOFT PO SCH (12:19)
[2019-11-29] MEDS: ULTRAM PO SCH ×3 (13:31→21:34)
--- NOTE | 2019-11-29 13:34 | DR.UPDATE ---
H&P Update History and Physical Update: History and Physical reviewed and patient examined. Changes noted: Yes with the following: WAS SEEN IN THE OFFICE TODAY FOR COMPLAINTS OF SHORTNESS OF BREATH, CHEST PAIN WITH RADIATION TO THE RIGHT SHOULDER, AND COUGH. SHE HAS BEEN RECEIVING LEVAQUIN 750MG PO DAILY FOR BRONCHITIS SINCE 11/20/19 WITHOUT SIGNIFICANT IMPROVEMENT IN SYMPTOMS. WE ADMITTED HER TO THE HOSPITAL FOR FURTHER EVALUATION AND TREATMENT OF BRONCHOPNEUMONIA, CHEST PAIN, DYSPNEA, AND COUGH. ON ARRIVAL TO THE HOSPITAL, VITALS WERE 98.0-86-20-98%-133/84. LABS WERE OBTAINED. ABNORMAL LAB VALUES INCLUDE THE FOLLOWING: WBC 13.6, SODIUM 134, CHLORIDE 97, CARBON DIOXIDE 33.7, GLUCOSE 304, AST 14, GLOBULIN 4.6. CARDIAC ENZYMES WITHIN NORMAL LIMITS. SHE IS NEGATIVE FOR COVID-19. BLOOD CULTURES WERE SET UP. EKG REVEALED: SINUS RHYTHM WITH HR 97. A CHEST XRAY WAS OBTAINED AND REVEALED: NO ACUTE CARDIOPULMONARY ABNORMALITY IDENTIFIED. SHE WAS STARTED ON THE PNEUMONIA PROTOCOL WITH 1/2NS AT 75 ML/HR, LEVAQUIN 500MG IV DAILY, DUONEBS QID, TUSSIONEX 5ML PO Q12H PRN, ROBITUSSIN DM 10 ML PO QID, THE POTASSIUM AND MAGNESIUM PROTOCOLS, HUMULIN R SLIDIDNG SCALE, LOVENOX 40MG SC DAILY, AND HOME MEDICATIONS WERE RESUMED. WE PLAN TO FOLLOW UP WITH AM LABS AND CHEST XRAY AND CONTINUE TO MONITOR. Prescription drug monitoring program results: PDMP was not reviewed H&P Reviewed: Yes Patient was examined?: Yes
[2019-11-29] MEDS: SNACK - Diabetic Appropriate PO SCH (20:10)
[2019-11-29] MEDS: LAMICTAL TAB 100 MG PO SCH (21:36)
[2019-11-29] MEDS: LEVAQUIN PREMIX IV 500 MG 500 MG/100 ML BAG IV SCH (21:37)
[2019-11-30] MEDS: PERCOCET TAB 5/325 MG PO PRN (04:03)
[2019-11-30] MEDS: KLONOPIN TAB 1 MG PO PRN ×2 (04:04→09:38)
[2019-11-30] MEDS: HumuLIN R SUBCUT PRN ×3 (05:55→20:33)
--- NOTE | 2019-11-30 06:10 | RAD ---
HISTORYShortness of breathSTUDYChest AP [id number]/24/2020FINDINGSThe heart is upper limits normal in size. No congestive heart failure is noted. Keily are normal. The lung ramos are clear. No pleural effusions are identified. Bony thorax is unremarkable.IMPRESSIONNo significant abnormality identifiedElectronically signed by: JENN FRANKLIN (Nov 30, 2019 06:08:56)
[2019-11-30 06:19] LABS: BASOPHILS % (AUTO) 0.3 % (0.2-1.0); EOSINOPHILS # (AUTO) 0.3 x10^3/uL (0.0-0.2); EOSINOPHILS % (AUTO) 2.8 % (0.9-2.9); HEMATOCRIT 37.8 % (36.0-47.0); HEMOGLOBIN 12.4 g/dL (12.0-16.0); LYMPHOCYTES # (AUTO) 4.9 X10^3/uL (1.3-2.9); LYMPHOCYTES % (AUTO) 43.2 % (21.0-51.0); MEAN CORPUSCULAR HEMOGLOBIN 28.4 pg (27.0-34.0); MEAN CORPUSCULAR HGB CONC 32.9 g/dL (33.0-35.0); MEAN CORPUSCULAR VOLUME 86.4 fL (80.0-100.0); MEAN PLATELET VOLUME 7.7 fL (7.4-11.0); MONOCYTES % (AUTO) 8.5 % (0.0-13.0); NEUTROPHILS # (AUTO) 5.2 x10^3/uL (2.2-4.8); NEUTROPHILS % (AUTO) 45.2 % (42.0-75.0); PLATELET COUNT 320 X10^3/uL (150.0-450.0); RED BLOOD COUNT 4.38 X10^6/uL (3.5-5.4); WHITE BLOOD COUNT 11.4 X10^3/uL (3.6-10.0)
[2019-11-30 06:30] LABS: ALANINE AMINOTRANSFERASE 25 Units/L (12-78); ALBUMIN 3.2 g/dL (3.4-5.0); ALKALINE PHOSPHATASE 69 Units/L (46-116); ASPARTATE AMINO TRANSFERASE 15 Units/L (15-37); BLOOD UREA NITROGEN 14 mg/dL (7-18); CALCIUM 8.9 mg/dL (8.5-10.1); CARBON DIOXIDE 32.7 mmol/L (21-32); CHLORIDE 99 mmol/L (98-107); COR CA(FOR HYPOALB) 9.5 mg/dL (8.5-10.1); COR NA(FOR HYPERGLY) 138 mmol/L (136-145); CREATININE 0.67 mg/dL (0.55-1.02); MAGNESIUM 1.9 mg/dL (1.7-2.9); SODIUM 136 mmol/L (136-145); TOTAL PROTEIN 7.4 g/dL (6.4-8.2); eGFR NON BLACK RACES > 60 (>60)
[2019-11-30] MEDS ORDERED: ZOLOFT PO ONE (08:49)
[2019-11-30] MEDS ORDERED: NS 1/2 1000 ML IV 1,000 ML IV ONE (08:50)
[2019-11-30] MEDS: DUONEB 0.5 MG/3 MG (3 mL) NEB SCH ×4 (09:06→20:47)
[2019-11-30] MEDS: NS 1/2 1000 ML IV 1,000 ML IV SCH (09:14)
[2019-11-30] MEDS: VSL#3 PO SCH (09:15)
[2019-11-30] MEDS: LOVENOX INJ 40 MG SYR SC SCH (09:15)
[2019-11-30] MEDS: LANTUS SC SCH (09:16)
[2019-11-30] MEDS: COZAAR PO SCH (09:17)
[2019-11-30] MEDS: ZOLOFT PO SCH (09:17)
[2019-11-30] MEDS: COREG TAB 6.25 MG PO SCH ×2 (09:17→20:35)
[2019-11-30] MEDS: K-DUR TAB 20 MEQ PO PRN (09:18)
[2019-11-30] MEDS: ULTRAM PO SCH ×4 (09:18→20:35)
[2019-11-30] MEDS: ROBITUSSIN DM PO SCH ×4 (09:19→20:37)
--- NOTE | 2019-11-30 10:17 | PCM.PROG ---
Progress Note - Progress Note for Day of Date of Exam: 11/30/19 - Subjective Subjective: IS BEING TREATED FOR BRONCHOPNEUMONIA AND CHEST PAIN. TODAY, SHE IS ALERT AND ORIENTED, LYING IN BED ON MORNING ROUNDS. SHE REPORTS ABDOMINAL PAIN THIS MORNING. PAIN IS LOCATED IN THE EPIGASTRIC AREA AND IS DESCRIBED A STABBING PAIN. PAIN IS RATED 6/10. SHE ALSO CONTINUES WITH SHORTNESS OF BREATH AND AN INTERMITTENT COUGH. ON EXAMINATION, HEART IS REGULAR IN RATE AND RHYTHM. BILATERAL LUNGS ARE NOTED WITH DIMINISHED LUNG SOUNDS THROUGHOUT. ABDOMEN IS ROUND, SOFT, AND NON-TENDER WITH NORMAL BOWEL SOUNDS NOTED IN ALL QUADRANTS. HER VITALS THIS MORNING ARE: 98.0-77-20-98%-141/79. LABS WERE OBTAINED. ABNORMAL LAB VALUES INCLUDE THE FOLLOWING: WBC 11.4, CARBON DIOXID 32.7, GLUCOSE 170, ALBUMIN 3.2, CRP 21.50. BLOOD CULTURES ARE PENDING. A CHEST XRAY WAS OBTAINED TODAY AND REVEALED: No significant abnormality identified. SHE IS CURRENTLY RECEIVING 1/2NS AT 75 ML/HR, LEVAQUIN 500MG IV DAILY, DUONEBS QID, TUSSIONEX 5ML PO Q12H PRN, ROBITUSSIN DM 10 ML PO QID, THE POTASSIUM AND MAGNESIUM PROTOCOLS, HUMULIN R SLIDING SCALE, LOVENOX 40MG SC DAILY, AND HOME MEDICATIONS WERE RESUMED. TODAY, WE WILL OBTAIN A CHEST CTA AND AN ABDOMEN/PELVIS CT WITH CONTRAST. OTHERWISE, WE PLAN TO FOLLOW UP WITH AM LABS AND CONTINUE TO MONITOR. - Past Medical Family Social History Past Med/Fam/Surg Hx: No changes since H&P Allergies: Allergies No Known Drug Allergies Allergy (Verified 06/10/17 12:12) - Review of Systems ROS: No change since H&P - Vital Signs and I&O's Vital Signs: Temperature 98 F Pulse Rate [Right Brachial] 77 Pulse Rate [Brachial] 76 Pulse Rate 85 Respiratory Rate 20 Blood Pressure [Left Arm] 130/72 Blood Pressure [Right Arm] 141/79 Blood Pressure 152/88 O2 Sat by Pulse Oximetry 97 Intake and Output: Intake & Output 11/27/19 11/28/19 11/29/19 11/30/19 11:59 11:59 11:59 11:59 Intake Total 1880 / 1880 2964 / 2964 Balance 188 / 1880 2964 / 2964 - Physical Exam Oriented: Normal Eyes: Normal Ear: Normal Nose: Normal Throat: Normal Respiratory: Generalized, Diminished Cardiovascular: Normal : Normal Auscultation: Bowel Sounds: Normal Palpation: Normal Tenderness: Epigastric, Moderate. negative: Rebound, Guarding, Rigidity Skin: Normal Musculoskeletal: Normal Psychiatric: Normal Mood Description: Calm Affect: Normal Speech Pattern: Clear, Appropriate - Laboratory and Diagnostics Result Diagrams: 11/30/19 05:07 11/30/19 05:07 Labs: 11/28/19 21:10 Blood Blood Culture - Preliminary 11/28/19 21:10 Blood Blood Culture - Preliminary Laboratory WBC 11.4 X10^3/uL (3.6-10.0) H 11/30/19 05:07 RBC 4.38 X10^6/uL (3.5-5.4) 11/30/19 05:07 Hgb 12.4 g/dL (12.0-16.0) 11/30/19 05:07 Hct 37.8 % (36.0-47.0) 11/30/19 05:07 MCV 86.4 fL (80.0-100.0) 11/30/19 05:07 MCH 28.4 pg (27.0-34.0) 11/30/19 05:07 MCHC 32.9 g/dL (33.0-35.0) L 11/30/19 05:07 RDW 14.0 % (11.6-16.5) 11/30/19 05:07 Plt Count 320 X10^3/uL (150.0-450.0) 11/30/19 05:07 MPV 7.7 fL (7.4-11.0) 11/30/19 05:07 Neut % (Auto) 45.2 % (42.0-75.0) 11/30/19 05:07 Lymph % (Auto) 43.2 % (21.0-51.0) 11/30/19 05:07 [place] % (Auto) 8.5 % (0.0-13.0) 11/30/19 05:07 Eos % (Auto) 2.8 % (0.9-2.9) 11/30/19 05:07 Baso % (Auto) 0.3 % (0.2-1.0) 11/30/19 05:07 Neut # (Auto) 5.2 x10^3/uL (2.2-4.8) H 11/30/19 05:07 Lymph # (Auto) 4.9 X10^3/uL (1.3-2.9) H 11/30/19 05:07 [place] # (Auto) 1.0 x10^3/uL (0.3-0.8) H 11/30/19 05:07 Eos # (Auto) 0.3 x10^3/uL (0.0-0.2) H 11/30/19 05:07 Baso # (Auto) 0.0 X10^3/uL (0.0-0.1) 11/30/19 05:07 Absolute Nucleated RBC 0.0 /100WBC 11/30/19 05:07 Sodium 136 mmol/L (136-145) 11/30/19 05:07 Corrected Sodium 138 mmol/L (136-145) 11/30/19 05:07 Potassium 3.6 mmol/L (3.5-5.1) 11/30/19 05:07 Chloride 99 mmol/L (98-107) 11/30/19 05:07 Carbon Dioxide 32.7 mmol/L (21-32) H 11/30/19 05:07 BUN 14 mg/dL (7-18) 11/30/19 05:07 Creatinine 0.67 mg/dL (0.55-1.02) 11/30/19 05:07 Est GFR (MDRD) Af Amer > 60 (>60) 11/30/19 05:07 Est GFR (MDRD) Non-Af > 60 (>60) 11/30/19 05:07 Glucose 170 mg/dL (65-99) H 11/30/19 05:07 POC Glucose (mg/dL) 158 mg/dL (65-99) H 11/30/19 05:29 Calcium 8.9 mg/dL (8.5-10.1) 11/30/19 05:07 Corrected Calcium 9.5 mg/dL (8.5-10.1) 11/30/19 05:07 Magnesium 1.9 mg/dL (1.7-2.9) 11/30/19 05:07 Magnesium Cancelled 11/30/19 05:07 Total Bilirubin 0.20 mg/dL (0.2-1.0) 11/30/19 05:07 AST 15 Units/L (15-37) 11/30/19 05:07 ALT 25 Units/L (12-78) 11/30/19 05:07 Alkaline Phosphatase 69 Units/L (46-116) 11/30/19 05:07 Creatine Kinase 41 Units/L (26-192) 11/29/19 08:20 CK-MB (CK-2) < 1.0 ng/mL (0-4.0) 11/29/19 08:20 CK/CKMB % Calc 2.4 % (<4) 11/29/19 08:20 Troponin I < 0.02 ng/mL (0-1.5) 11/29/19 08:20 C-Reactive Protein 21.50 mg/L (0-3.0) H 11/30/19 05:07 Total Protein 7.4 g/dL (6.4-8.2) 11/30/19 05:07 Albumin 3.2 g/dL (3.4-5.0) L 11/30/19 05:07 Globulin 4.2 g/dL (2.5-4.5) 11/30/19 05:07 Albumin/Globulin Ratio 0.8 Ratio (1.1-2.1) L 11/30/19 05:07 Triglycerides 169 mg/dL (0-150) H 11/29/19 05:44 Cholesterol 171 mg/dL (0-200) 11/29/19 05:44 LDL Cholesterol, Calc 103 mg/dL (0-100) H 11/29/19 05:44 HDL Cholesterol 34 mg/dL (40-60) L 11/29/19 05:44 Cholesterol/HDL Ratio 5.0 (0.0-5.0) 11/29/19 05:44 SARS-CoV-2 (PCR) Negative (NEGATIVE) 11/28/19 17:15 - Plan (1) Bronchopneumonia Status: Acute Plan: 1/2NS AT 75 ML/HR, LEVAQUIN 500MG IV DAILY, DUONEBS QID, TUSSIONEX 5ML PO Q12H PRN, ROBITUSSIN DM 10 ML PO QID, THE POTASSIUM AND MAGNESIUM PROTOCOLS, HUMULIN R SLIDING SCALE, LOVENOX 40MG SC DAILY, AND HOME MEDICATIONS WERE RE SUMED (2) Chest pain Status: Acute Qualifiers: Chest pain type: unspecified Qualified Code(s): R07.9 - Chest pain, unspecified Plan: OBTAIN CHEST CTA TODAY (3) Abdominal pain Status: Acute Qualifiers: Abdominal location: epigastric Qualified Code(s): R10.13 - Epigastric pain Plan: OBTAIN ABDOMEN/PELVIS CT TODAY
[2019-11-30] MEDS ORDERED: NS 100 ML IV 100 ML IV ONE (12:03)
--- NOTE | 2019-11-30 13:38 | CT ---
HISTORYSOB, CHEST PAINSTUDYCTA CHESTCOMPARISONNoneTECHNIQUEMultiple axial images of the chest were obtained from the thoracic inlet to the upper abdomen after the administration of IV contrast. 3D reconstructions utilizing axial MIPS imaging was performed and reviewed. Dose reduction techniques including Automated Exposure Control (AEC) and adjustment of mA and kV were utilized.FINDINGSA few scattered subcentimeter lymph nodes as measured across the short axis are seen within the mediastinum. There is no significant pericardial effusion observed. Atherosclerotic coronary artery calcifications are noted. The thoracic aorta is unremarkable in its contour without evidence for aneurysmal dilatation. Allowing for streak artifact no definite focal well circumscribed large filling defects are appreciated within the main pulmonary arteries. Evaluation of the distal branches is more limited. Areas of suspected subsegmental atelectasis and/or scarring are noted within both lungs. Otherwise no CT evidence of focal consolidation, pneumothorax, or pleural effusion is identified..IMPRESSIONNo definite CT evidence of pulmonary embolism is appreciated as noted above.Electronically signed by: JESSE MILTON (Nov 30, 2019 13:36:53)
[2019-11-30] MEDS: SNACK - Diabetic Appropriate PO SCH (20:30)
[2019-11-30] MEDS: LEVAQUIN PREMIX IV 500 MG 500 MG/100 ML BAG IV SCH (20:31)
[2019-11-30] MEDS: LAMICTAL TAB 100 MG PO SCH (20:37)
[2019-12-01] MEDS ORDERED: NS 1/2 1000 ML IV 1,000 ML IV ONE ×2 (04:13→17:32)
[2019-12-01] MEDS: PERCOCET TAB 5/325 MG PO PRN (05:35)
--- NOTE | 2019-12-01 06:07 | RAD ---
HISTORYSOBSTUDYPortable AP [id number]/26/2020FINDINGSStable cardiac and ventricular prominence. The lungs are clear. There is no evidence for CHF, pneumonia or pleural effusion.IMPRESSIONNo acute chest findings or interval change.Electronically signed by: HERRERA DE LA FUENTE (Dec 01, 2019 06:05:36)
[2019-12-01 07:36] LABS: BASOPHILS % (AUTO) 0.3 % (0.2-1.0); EOSINOPHILS # (AUTO) 0.3 x10^3/uL (0.0-0.2); EOSINOPHILS % (AUTO) 2.8 % (0.9-2.9); HEMOGLOBIN 12.4 g/dL (12.0-16.0); LYMPHOCYTES # (AUTO) 4.4 X10^3/uL (1.3-2.9); LYMPHOCYTES % (AUTO) 40.8 % (21.0-51.0); MEAN CORPUSCULAR HEMOGLOBIN 29.1 pg (27.0-34.0); MEAN CORPUSCULAR HGB CONC 33.5 g/dL (33.0-35.0); MEAN CORPUSCULAR VOLUME 86.7 fL (80.0-100.0); MEAN PLATELET VOLUME 8.3 fL (7.4-11.0); MONOCYTES # (AUTO) 0.9 x10^3/uL (0.3-0.8); MONOCYTES % (AUTO) 8.1 % (0.0-13.0); NEUTROPHILS # (AUTO) 5.2 x10^3/uL (2.2-4.8); PLATELET COUNT 316 X10^3/uL (150.0-450.0); RED BLOOD COUNT 4.26 X10^6/uL (3.5-5.4); RED CELL DISTRIBUTION WIDTH 13.8 % (11.6-16.5); WHITE BLOOD COUNT 10.8 X10^3/uL (3.6-10.0)
[2019-12-01 07:45] LABS: ALANINE AMINOTRANSFERASE 23 Units/L (12-78); ALBUMIN 3.2 g/dL (3.4-5.0); ALKALINE PHOSPHATASE 70 Units/L (46-116); ASPARTATE AMINO TRANSFERASE 17 Units/L (15-37); BLOOD UREA NITROGEN 8 mg/dL (7-18); CALCIUM 9.1 mg/dL (8.5-10.1); CARBON DIOXIDE 34.6 mmol/L (21-32); CHLORIDE 99 mmol/L (98-107); COR CA(FOR HYPOALB) 9.7 mg/dL (8.5-10.1); COR NA(FOR HYPERGLY) 139 mmol/L (136-145); CREATININE 0.66 mg/dL (0.55-1.02); SODIUM 137 mmol/L (136-145); TOTAL PROTEIN 7.4 g/dL (6.4-8.2); eGFR NON BLACK RACES > 60 (>60)
[2019-12-01] MEDS ORDERED: ZOLOFT PO ONE (09:11)
[2019-12-01] MEDS: KLONOPIN TAB 1 MG PO PRN ×2 (09:27→21:00)
[2019-12-01] MEDS: ULTRAM PO SCH ×4 (09:27→20:37)
[2019-12-01] MEDS: COZAAR PO SCH (09:28)
[2019-12-01] MEDS: ZOLOFT PO SCH (09:28)
[2019-12-01] MEDS: COREG TAB 6.25 MG PO SCH ×2 (09:29→20:36)
[2019-12-01] MEDS: LANTUS SC SCH (09:29)
[2019-12-01] MEDS: ROBITUSSIN DM PO SCH ×4 (09:30→20:37)
[2019-12-01] MEDS: LOVENOX INJ 40 MG SYR SC SCH (09:30)
[2019-12-01] MEDS: VSL#3 PO SCH (09:30)
[2019-12-01] MEDS: DUONEB 0.5 MG/3 MG (3 mL) NEB SCH ×4 (09:31→21:25)
[2019-12-01] MEDS: TORADOL 15 MG VIAL IVP SCH ×2 (12:07→19:20)
[2019-12-01] MEDS: HumuLIN R SUBCUT PRN ×2 (12:39→17:58)
[2019-12-01] MEDS: NS 1/2 1000 ML IV 1,000 ML IV SCH ×3 (17:56→19:37)
[2019-12-01] MEDS: SNACK - Diabetic Appropriate PO SCH (19:22)
[2019-12-01] MEDS: LEVAQUIN PREMIX IV 500 MG 500 MG/100 ML BAG IV SCH (20:37)
[2019-12-01] MEDS: LAMICTAL TAB 100 MG PO SCH (20:37)
[2019-12-02] MEDS: TORADOL 15 MG VIAL IVP SCH (03:33)
[2019-12-02] MEDS ORDERED: NS 1/2 1000 ML IV 1,000 ML IV ONE (05:28)
[2019-12-02] MEDS: NS 1/2 1000 ML IV 1,000 ML IV SCH (05:34)
[2019-12-02] MEDS: HumuLIN R SUBCUT PRN (05:54)
[2019-12-02] MEDS: PERCOCET TAB 5/325 MG PO PRN (05:55)
[2019-12-02 07:21] LABS: BASOPHILS % (AUTO) 0.2 % (0.2-1.0); EOSINOPHILS # (AUTO) 0.3 x10^3/uL (0.0-0.2); EOSINOPHILS % (AUTO) 3.3 % (0.9-2.9); HEMATOCRIT 36.6 % (36.0-47.0); HEMOGLOBIN 12.1 g/dL (12.0-16.0); LYMPHOCYTES # (AUTO) 4.6 X10^3/uL (1.3-2.9); LYMPHOCYTES % (AUTO) 43.6 % (21.0-51.0); MEAN CORPUSCULAR HEMOGLOBIN 28.7 pg (27.0-34.0); MEAN CORPUSCULAR VOLUME 87.1 fL (80.0-100.0); MEAN PLATELET VOLUME 8.3 fL (7.4-11.0); MONOCYTES # (AUTO) 0.9 x10^3/uL (0.3-0.8); MONOCYTES % (AUTO) 8.6 % (0.0-13.0); NEUTROPHILS # (AUTO) 4.7 x10^3/uL (2.2-4.8); NEUTROPHILS % (AUTO) 44.3 % (42.0-75.0); PLATELET COUNT 287 X10^3/uL (150.0-450.0); RED CELL DISTRIBUTION WIDTH 14.1 % (11.6-16.5); WHITE BLOOD COUNT 10.6 X10^3/uL (3.6-10.0)
[2019-12-02 07:31] LABS: ALANINE AMINOTRANSFERASE 24 Units/L (12-78); ALBUMIN 2.9 g/dL (3.4-5.0); ALKALINE PHOSPHATASE 64 Units/L (46-116); ASPARTATE AMINO TRANSFERASE 16 Units/L (15-37); BLOOD UREA NITROGEN 9 mg/dL (7-18); CALCIUM 8.7 mg/dL (8.5-10.1); CARBON DIOXIDE 33.5 mmol/L (21-32); CHLORIDE 100 mmol/L (98-107); COR CA(FOR HYPOALB) 9.6 mg/dL (8.5-10.1); COR NA(FOR HYPERGLY) 139 mmol/L (136-145); CREATININE 0.71 mg/dL (0.55-1.02); SODIUM 136 mmol/L (136-145); TOTAL PROTEIN 6.9 g/dL (6.4-8.2); eGFR NON BLACK RACES > 60 (>60)
[2019-12-02] MEDS ORDERED: ZOLOFT PO ONE (09:13)
[2019-12-02] MEDS: DUONEB 0.5 MG/3 MG (3 mL) NEB SCH (09:27)
[2019-12-02] MEDS: LOVENOX INJ 40 MG SYR SC SCH (09:41)
[2019-12-02] MEDS: LANTUS SC SCH (09:49)
[2019-12-02] MEDS: ULTRAM PO SCH (09:51)
[2019-12-02] MEDS: ZOLOFT PO SCH (09:51)
[2019-12-02] MEDS: COREG TAB 6.25 MG PO SCH (09:54)
[2019-12-02] MEDS: COZAAR PO SCH (09:54)
[2019-12-02] MEDS: ROBITUSSIN DM PO SCH (09:56)
[2019-12-02] MEDS: VSL#3 PO SCH (09:57)
[2019-12-02 14:33] VITALS: BP 138/65
--- NOTE | 2019-12-04 17:24 | RAD ---
HISTORYPainSTUDYLeft shoulder three viewsCOMPARISONNoneFINDINGSNo definite fracture or dislocation. The humeral head is in normal position. The glenohumeral joint is unremarkable. There is narrowing of the AC articulation. No bone destruction or soft tissue calcification is noted.IMPRESSIONNo acute findings left shoulder. Osteoarthritis of acromioclavicular joint.Electronically signed by: HERRERA DE LA FUENTE (Dec 01, 2019 10:34:06)
== END 2019-12-02 12:25 | disposition home or self-care (01) | DRG 195 ==
LOC: OBS 16:48 → MED/SURG 18:29
PROVIDERS: ADMIT Internal Medicine; ATTEND Internal Medicine
DX: J18.0 Bronchopneumonia, unspecified organism; R06.02 Shortness of breath; M25.512 Pain in left shoulder; Z11.59 Encounter for screening for other viral diseases; R10.13 Epigastric pain; R10.84 Generalized abdominal pain; R07.89 Other chest pain; E11.65 Type 2 diabetes mellitus with hyperglycemia
CPT/HCPCS: 36415; 71010; 71020; 71045; 71046; 71275; 73030; 74177; 80053; 80061; 82550; 82553; 83735; 84484; 85025; 85652; 86140; 87040; 87070; 87205; 87635; 93005; 94640; 94760; A4222; J1650; J1815; J1885; J1956; J3475; J3490; J7620

== ENCOUNTER 2022-01-07 12:34 | Inpatient (IN) ==
[2022-01-07 15:15] LABS: BASOPHILS # (AUTO) 0.1 X10^3/uL (0.0-0.1); BASOPHILS % (AUTO) 0.3 % (0.2-1.0); EOSINOPHILS # (AUTO) 0.3 x10^3/uL (0.0-0.2); HEMOGLOBIN 13.6 g/dL (12.0-16.0); LYMPHOCYTES # (AUTO) 3.6 X10^3/uL (1.3-2.9); LYMPHOCYTES % (AUTO) 23.5 % (21.0-51.0); MEAN CORPUSCULAR HEMOGLOBIN 29.4 pg (27.0-34.0); MEAN CORPUSCULAR VOLUME 86.4 fL (80.0-100.0); MEAN PLATELET VOLUME 8.4 fL (7.4-11.0); MONOCYTES # (AUTO) 0.9 x10^3/uL (0.3-0.8); NEUTROPHILS # (AUTO) 10.3 x10^3/uL (2.2-4.8); NEUTROPHILS % (AUTO) 68.2 % (42.0-75.0); RED BLOOD COUNT 4.63 X10^6/uL (3.5-5.4); RED CELL DISTRIBUTION WIDTH 13.1 % (11.6-16.5); WHITE BLOOD COUNT 15.2 X10^3/uL (3.6-10.0)
[2022-01-07 15:31] LABS: ALANINE AMINOTRANSFERASE 25 Units/L (12-78); ALBUMIN 3.7 g/dL (3.4-5.0); ALKALINE PHOSPHATASE 85 Units/L (46-116); ASPARTATE AMINO TRANSFERASE 14 Units/L (15-37); BLOOD UREA NITROGEN 24 mg/dL (7-18); CALCIUM 9.3 mg/dL (8.5-10.1); CARBON DIOXIDE 28.8 mmol/L (21-32); CHLORIDE 95 mmol/L (98-107); COR NA(FOR HYPERGLY) 141 mmol/L (136-145); CREATINE KINASE 43 Units/L (26-192); CREATININE 0.84 mg/dL (0.55-1.02); SODIUM 134 mmol/L (136-145); TOTAL PROTEIN 8.4 g/dL (6.4-8.2); eGFR NON BLACK RACES > 60 (>60)
[2022-01-07] MEDS: NS 1,000 ML IV 1,000 ML IV SCH (15:38)
--- NOTE | 2022-01-07 15:49 | RAD ---
CHEST, 1 VIEWHISTORY: DEHYDRATION, WEAKNESS, HYPOGLACEMIAStudy: Single view of the chest.Comparison:06/11/2020Findings:Patient is markedly rotated to the left causing prominence of the right hilum. This is unchanged from prior.No focal consolidations, pleural effusions or pneumothorax. Osseous structures demonstrate no acute abnormality.IMPRESSION:1. No acute cardiopulmonary process.Electronically signed by: GAL WILCOX (Jan 07, 2022 15:47:16)
[2022-01-07 15:52] VITALS: BMI 40.6
[2022-01-07] MEDS: NovoLIN R (or HumuLIN R) SC PRN ×2 (16:33→21:37)
[2022-01-07 17:10] LABS: BILIRUBIN,URINE NEGATIVE (NEGATIVE); BLOOD/HEMOGLOBIN,URINE NEGATIVE (NEGATIVE); GLUCOSE, URINE 4+ (NEGATIVE); KETONES,URINE 2+ (NEGATIVE); LEUKOCYTE ESTERASE ,URINE NEGATIVE (NEGATIVE); NITRITES,URINE NEGATIVE (NEGATIVE); PROTEIN,URINE NEGATIVE (NEGATIVE); UROBILINOGEN,URINE NORMAL (NORMAL)
[2022-01-07 17:21] LABS: APPEARANCE,URINE CLEAR (CLEAR); COLOR,URINE PALE YELLOW (YELLOW)
[2022-01-07] MEDS: COREG TAB 12.5 MG PO SCH ×2 (18:41→21:36)
[2022-01-07] MEDS: COZAAR PO SCH (19:01)
[2022-01-07] MEDS: NEURONTIN CAP 100 MG PO SCH (21:46)
[2022-01-07] MEDS: ZANAFLEX PO SCH (21:48)
[2022-01-07] MEDS: PROTONIX TAB 40 MG PO SCH (21:48)
[2022-01-07] MEDS: PEPCID TAB 40 MG PO SCH (21:49)
[2022-01-07] MEDS: FLONASE NASAL SPRAY ENOSTRIL SCH (21:49)
[2022-01-07] MEDS: LAMICTAL TAB 100 MG PO SCH (21:49)
[2022-01-07] MEDS: KLONOPIN TAB 1 MG PO SCH (21:49)
[2022-01-07] MEDS: ZOFRAN TAB 4 MG PO PRN (23:15)
[2022-01-08] MEDS: NS 1,000 ML IV 1,000 ML IV SCH ×3 (03:24→16:57)
[2022-01-08] MEDS: NovoLIN R (or HumuLIN R) SC PRN (05:46)
[2022-01-08] MEDS: ZANAFLEX PO SCH ×3 (05:47→21:03)
[2022-01-08 06:29] LABS: BASOPHILS # (AUTO) 0.1 X10^3/uL (0.0-0.1); BASOPHILS % (AUTO) 0.4 % (0.2-1.0); EOSINOPHILS # (AUTO) 0.3 x10^3/uL (0.0-0.2); EOSINOPHILS % (AUTO) 2.2 % (0.9-2.9); HEMATOCRIT 33.8 % (36.0-47.0); HEMOGLOBIN 11.3 g/dL (12.0-16.0); LYMPHOCYTES # (AUTO) 3.7 X10^3/uL (1.3-2.9); LYMPHOCYTES % (AUTO) 28.5 % (21.0-51.0); MEAN CORPUSCULAR HEMOGLOBIN 28.8 pg (27.0-34.0); MEAN CORPUSCULAR HGB CONC 33.4 g/dL (33.0-35.0); MEAN CORPUSCULAR VOLUME 86.2 fL (80.0-100.0); MEAN PLATELET VOLUME 8.8 fL (7.4-11.0); MONOCYTES # (AUTO) 1.2 x10^3/uL (0.3-0.8); MONOCYTES % (AUTO) 9.6 % (0.0-13.0); NEUTROPHILS # (AUTO) 7.7 x10^3/uL (2.2-4.8); NEUTROPHILS % (AUTO) 59.3 % (42.0-75.0); RED BLOOD COUNT 3.92 X10^6/uL (3.5-5.4); RED CELL DISTRIBUTION WIDTH 13.6 % (11.6-16.5); WHITE BLOOD COUNT 12.9 X10^3/uL (3.6-10.0)
[2022-01-08 06:38] LABS: ALANINE AMINOTRANSFERASE 20 Units/L (12-78); ALBUMIN 2.9 g/dL (3.4-5.0); ALKALINE PHOSPHATASE 70 Units/L (46-116); AMYLASE 43 Units/L (25-115); ASPARTATE AMINO TRANSFERASE 14 Units/L (15-37); BLOOD UREA NITROGEN 20 mg/dL (7-18); CALCIUM 8.7 mg/dL (8.5-10.1); CARBON DIOXIDE 29.4 mmol/L (21-32); CHLORIDE 97 mmol/L (98-107); COR CA(FOR HYPOALB) 9.6 mg/dL (8.5-10.1); COR NA(FOR HYPERGLY) 139 mmol/L (136-145); LIPASE 691 Units/L (73-393); SODIUM 133 mmol/L (136-145); TOTAL PROTEIN 6.6 g/dL (6.4-8.2); eGFR NON BLACK RACES > 60 (>60)
--- NOTE | 2022-01-08 06:39 | RAD ---
HISTORYNausea, vomitingSTUDYKUBCOMPARISONNone FINDINGSAbdominal gas pattern is nonspecific and nonobstructive. No abnormal masses or abnormal calcifications are identified. Regional skeleton is intact.IMPRESSIONUnremarkable KUBElectronically signed by: JENN FRANKLIN (Jan 08, 2022 06:37:21)
[2022-01-08] MEDS: PROTONIX TAB 40 MG PO SCH ×2 (08:11→20:42)
[2022-01-08] MEDS: PEPCID TAB 40 MG PO SCH (08:11)
[2022-01-08] MEDS: COZAAR PO SCH ×2 (08:11→08:14)
[2022-01-08] MEDS: KLONOPIN TAB 1 MG PO SCH ×2 (08:12→20:44)
[2022-01-08] MEDS: COREG TAB 12.5 MG PO SCH ×2 (08:13→20:42)
[2022-01-08] MEDS: FLONASE NASAL SPRAY ENOSTRIL SCH ×2 (08:14→20:43)
[2022-01-08] MEDS ORDERED: ZOLOFT ONE (08:26)
[2022-01-08] MEDS: ZOFRAN TAB 4 MG PO PRN (08:27)
[2022-01-08] MEDS: ZOLOFT PO SCH (08:27)
[2022-01-08] MEDS: NEURONTIN CAP 100 MG PO SCH ×3 (08:27→20:42)
[2022-01-08] MEDS ORDERED: NovoLIN R (or HumuLIN R) SUBCUT SCH (11:00)
[2022-01-08] MEDS: LANTUS SC SCH (11:39)
[2022-01-08] MEDS: NovoLIN R (or HumuLIN R) SUBCUT SCH ×2 (11:40→16:18)
--- NOTE | 2022-01-08 12:01 | DR.UPDATE ---
H&P Update History and Physical Update: History and Physical reviewed and patient examined. Changes noted: Yes with the following: WAS SEEN IN THE OFFICE TODAY FOR COMPLAINTS OF NAUSEA AND VOMITING, WEAKNESS, DIZZINESS, ELEVATED BLOOD PRESSURE, AND HYPERGLYCEMIA. SYMPTOMS STARTED 2-3 HOURS PRIOR TO BEING SEEN. SHE DENIED PAIN. WE ADMITTED HER TO THE HOSPITAL FOR FURTHER EVALUATION AND TREATMENT OF DEHYDRATION, INTRACTABLE NAUSEA AND VOMITING, GENERALIZED WEAKNESS, AND HYPOGLYCEMIA. HER PMH INCLUDES: HTN, DELAYED GASTRIC EMPTYING, CHRONIC BACK PAIN, DM II, SJOGREN SYNDROME, ANXIETY, DEPRESSION, , HYSTERECTOMY, AND TONSILLECTOMY. ON ARRIVAL TO THE HOSPITAL, VITALS WERE 97.6-103-20-98%-151/94. LABS WERE OBTAINED. ABNORMAL LAB VALUES INCLUDE THE FOLLOWING: WBC 15.2, RBC 4.63, HGB 13.6, HCT 40.0, PLT COUNT 393, SODIUM 134, POTASSIUM 3.7, CHLORIDE 95, BUN 24, CREATININE 0.84, GLUCOSE 402, CALCIUM 9.3, AST 14, ALT 25, ALK PHOS 85, CREATINE KINASE 43, TROPONIN <4.0, TOTAL PROTEIN 8.4, ALBUMIN 3.7, GLOBULIN 4.7. SHE IS NEGATIVE FOR COVID-19. URINALYSIS WAS OBTAINED AND WAS UNREMARKABLE. URINE CULTURE WAS SET UP. A CHEST XRAY WAS OBTAINED AND REVEALED: Patient is markedly rotated to the left causing prominence of the right hilum. This is unchanged from prior. No focal consolidations, pleural effusions or pneumothorax. Osseous structures demonstrate no acute abnormality. EKG WAS OBTAINED AND REVEALED: NORMAL SINUS RHYTHM WITH HR 98. AND HOME MEDICATIONS WERE RESUMED. WE PLAN TO FOLLOW UP WITH AM LABS AND CHEST XRAY AND CONTINUE TO MONITOR. SHE WAS STARTED ON NORMAL SALINE AT 80 ML/HR, LANTUS 10 UNITS DAILY, HUMULIN R 5 UNITS TID BEFORE MEALS, OTBS ACHS, ZOFRAN 8MG PO Q6H PRN, AND HIS HOME MEDICATIONS WERE RESUMED. WE WILL OBTAIN A KUB. OTHERWISE, WE PLAN TO FOLLOW-UP WITH AM LABS AND CONTINUE TO MONITOR. TIME SPENT ON CLINICAL ASSESSMENT, REVIWING LABS AND IMAGING, DECISION MAKING, AND DOCUMENTATION GREATER THAN 75 MINUTES.
[2022-01-08] MEDS: ROCEPHIN VIAL 1 GRAM 1 G in NS 100 ML IV 100 ML IV SCH (13:21)
[2022-01-08] MEDS ORDERED: CHLORASEPTIC SPRAY MT PRN (15:43)
[2022-01-08] MEDS ORDERED: NovoLIN R (or HumuLIN R) SUBCUT ONE (20:00)
[2022-01-08] MEDS: SNACK - Diabetic Appropriate PO SCH (20:42)
[2022-01-08] MEDS: LAMICTAL TAB 100 MG PO SCH (20:44)
[2022-01-09] MEDS: NS 1,000 ML IV 1,000 ML IV SCH ×3 (05:54→18:12)
[2022-01-09] MEDS: NovoLIN R (or HumuLIN R) SUBCUT SCH (05:54)
[2022-01-09] MEDS: ZANAFLEX PO SCH ×3 (05:55→21:28)
[2022-01-09 06:23] LABS: BASOPHILS % (AUTO) 0.3 % (0.2-1.0); EOSINOPHILS # (AUTO) 0.2 x10^3/uL (0.0-0.2); EOSINOPHILS % (AUTO) 2.8 % (0.9-2.9); HEMATOCRIT 35.2 % (36.0-47.0); HEMOGLOBIN 11.8 g/dL (12.0-16.0); LYMPHOCYTES % (AUTO) 34.6 % (21.0-51.0); MEAN CORPUSCULAR HEMOGLOBIN 29.2 pg (27.0-34.0); MEAN CORPUSCULAR HGB CONC 33.6 g/dL (33.0-35.0); MEAN CORPUSCULAR VOLUME 86.7 fL (80.0-100.0); MEAN PLATELET VOLUME 8.5 fL (7.4-11.0); MONOCYTES # (AUTO) 0.6 x10^3/uL (0.3-0.8); MONOCYTES % (AUTO) 6.9 % (0.0-13.0); NEUTROPHILS # (AUTO) 4.8 x10^3/uL (2.2-4.8); NEUTROPHILS % (AUTO) 55.4 % (42.0-75.0); RED BLOOD COUNT 4.06 X10^6/uL (3.5-5.4); RED CELL DISTRIBUTION WIDTH 13.6 % (11.6-16.5); WHITE BLOOD COUNT 8.7 X10^3/uL (3.6-10.0)
[2022-01-09 06:29] LABS: ALANINE AMINOTRANSFERASE 23 Units/L (12-78); ALBUMIN 2.9 g/dL (3.4-5.0); ALKALINE PHOSPHATASE 74 Units/L (46-116); ASPARTATE AMINO TRANSFERASE 16 Units/L (15-37); BLOOD UREA NITROGEN 13 mg/dL (7-18); CALCIUM 8.4 mg/dL (8.5-10.1); CARBON DIOXIDE 29.8 mmol/L (21-32); CHLORIDE 101 mmol/L (98-107); COR CA(FOR HYPOALB) 9.3 mg/dL (8.5-10.1); COR NA(FOR HYPERGLY) 140 mmol/L (136-145); CREATININE 0.66 mg/dL (0.55-1.02); SODIUM 136 mmol/L (136-145); TOTAL PROTEIN 6.8 g/dL (6.4-8.2); eGFR NON BLACK RACES > 60 (>60)
[2022-01-09] MEDS ORDERED: ZOLOFT ONE (08:16)
[2022-01-09] MEDS: ZOLOFT PO SCH (08:22)
[2022-01-09] MEDS: COREG TAB 12.5 MG PO SCH ×2 (08:22→20:19)
[2022-01-09] MEDS: NEURONTIN CAP 100 MG PO SCH ×3 (08:23→20:21)
[2022-01-09] MEDS: PROTONIX TAB 40 MG PO SCH ×2 (08:23→20:21)
[2022-01-09] MEDS: KLONOPIN TAB 1 MG PO SCH ×2 (08:23→20:21)
[2022-01-09] MEDS: COZAAR PO SCH (08:24)
[2022-01-09] MEDS: FLONASE NASAL SPRAY ENOSTRIL SCH ×2 (08:24→20:53)
[2022-01-09] MEDS: ROCEPHIN VIAL 1 GRAM 1 G in NS 100 ML IV 100 ML IV SCH (08:25)
[2022-01-09] MEDS: PEPCID TAB 40 MG PO SCH (08:25)
[2022-01-09] MEDS: LANTUS SC SCH (08:25)
--- NOTE | 2022-01-09 11:44 | PCM.PROG ---
Progress Note Progress Note for Day of Date of Exam: 01/09/22 Subjective Subjective: Patient seen at bedside, no acute events overnight. Patient's FSBG was elevated last night, received 10 units of regular insulin. Her FSBG this morning was 260. She states she feels slightly better. She still has generalized weakness. She states nausea is better, no vomiting today. She was able to eat her breakfast. Patient had an EGD 2 months ago due to delayed gastric emptying. She has been eating small meals. Labs/imaging reviewed KUB: no acute process CXR: no infiltrate or consolidation Urine Cx: no growth Plan: increase lantus to 15 units daily, restart SSI. Continue diabetic diet. Advised patient to sit up and ambulate as tolerated. Continue gentle hydration. Follow urine Cx. Continue Rocephin. Continue home medications. Monitor AM labs/imaging. Past Medical Family Social History Allergies: Allergies No Known Drug Allergies Allergy (Verified 06/10/17 12:12) Review of Systems ROS: No change since H&P Vital Signs and I&O's Vital Signs: Temperature 97.4 F Pulse Rate [Right Brachial] 85 Respiratory Rate 18 Blood Pressure [Left Arm] 110/59 Blood Pressure [Right Arm] 138/65 Blood Pressure 110/60 O2 Sat by Pulse Oximetry 99 Intake and Output: Intake & Output 01/06/22 01/07/22 01/08/22 01/09/22 23:59 23:59 23:59 23:59 Intake Total 795 / 795 4144 / 4144 805 / 805 Balance 795 / 795 4144 / 4144 805 / 805 Physical Exam Oriented: Normal Ear: Normal Nose: Normal Throat: Normal Respiratory: Normal Cardiovascular: Normal Auscultation: Bowel Sounds: Normal Palpation: Normal (slight abdominal distension, non-tender ) Tenderness: Normal Skin: Normal Psychiatric: Normal Mood Description: Calm Affect: Normal Speech Pattern: Clear and Appropriate Laboratory and Diagnostics Result Diagrams: 01/09/22 05:20 01/09/22 05:20 Labs: 01/07/22 16:40 Urine,Clean Catch Urine Culture - Final Laboratory WBC 8.7 X10^3/uL (3.6-10.0) 01/09/22 05:20 RBC 4.06 X10^6/uL (3.5-5.4) 01/09/22 05:20 Hgb 11.8 g/dL (12.0-16.0) L 01/09/22 05:20 Hct 35.2 % (36.0-47.0) L 01/09/22 05:20 MCV 86.7 fL (80.0-100.0) 01/09/22 05:20 MCH 29.2 pg (27.0-34.0) 01/09/22 05:20 MCHC 33.6 g/dL (33.0-35.0) 01/09/22 05:20 RDW 13.6 % (11.6-16.5) 01/09/22 05:20 Plt Count 291 X10^3/uL (150.0-450.0) 01/09/22 05:20 MPV 8.5 fL (7.4-11.0) 01/09/22 05:20 Neut % (Auto) 55.4 % (42.0-75.0) 01/09/22 05:20 Lymph % (Auto) 34.6 % (21.0-51.0) 01/09/22 05:20 [place] % (Auto) 6.9 % (0.0-13.0) 01/09/22 05:20 Eos % (Auto) 2.8 % (0.9-2.9) 01/09/22 05:20 Baso % (Auto) 0.3 % (0.2-1.0) 01/09/22 05:20 Neut # (Auto) 4.8 x10^3/uL (2.2-4.8) 01/09/22 05:20 Lymph # (Auto) 3.0 X10^3/uL (1.3-2.9) H 01/09/22 05:20 [place] # (Auto) 0.6 x10^3/uL (0.3-0.8) 01/09/22 05:20 Eos # (Auto) 0.2 x10^3/uL (0.0-0.2) 01/09/22 05:20 Baso # (Auto) 0.0 X10^3/uL (0.0-0.1) 01/09/22 05:20 Absolute Nucleated RBC 0.1 /100WBC 01/09/22 05:20 Sodium 136 mmol/L (136-145) 01/09/22 05:20 Corrected Sodium 140 mmol/L (136-145) 01/09/22 05:20 Potassium 4.1 mmol/L (3.5-5.1) 01/09/22 05:20 Chloride 101 mmol/L (98-107) 01/09/22 05:20 Carbon Dioxide 29.8 mmol/L (21-32) 01/09/22 05:20 BUN 13 mg/dL (7-18) 01/09/22 05:20 Creatinine 0.66 mg/dL (0.55-1.02) 01/09/22 05:20 Est GFR (MDRD) Af Amer > 60 (>60) 01/09/22 05:20 Est GFR (MDRD) Non-Af > 60 (>60) 01/09/22 05:20 Glucose 274 mg/dL (65-99) H 01/09/22 05:20 POC Glucose (mg/dL) 323 mg/dL (65-99) H 01/09/22 11:26 Calcium 8.4 mg/dL (8.5-10.1) L 01/09/22 05:20 Corrected Calcium 9.3 mg/dL (8.5-10.1) 01/09/22 05:20 Total Bilirubin 0.20 mg/dL (0.2-1.0) 01/09/22 05:20 AST 16 Units/L (15-37) 01/09/22 05:20 ALT 23 Units/L (12-78) 01/09/22 05:20 Alkaline Phosphatase 74 Units/L (46-116) 01/09/22 05:20 Creatine Kinase 43 Units/L (26-192) 01/07/22 14:55 Troponin I High Sens < 4.0 ng/L (4.0-60.0) L 01/07/22 14:55 Total Protein 6.8 g/dL (6.4-8.2) 01/09/22 05:20 Albumin 2.9 g/dL (3.4-5.0) L 01/09/22 05:20 Globulin 3.9 g/dL (2.5-4.5) 01/09/22 05:20 Albumin/Globulin Ratio 0.7 Ratio (1.1-2.1) L 01/09/22 05:20 Amylase 43 Units/L (25-115) 01/08/22 05:24 Lipase 691 Units/L (73-393) H 01/08/22 05:24 Specimen Type Clean catch urine 01/07/22 16:40 Urine Color Pale yellow (YELLOW) 01/07/22 16:40 Urine Appearance Clear (CLEAR) 01/07/22 16:40 Urine pH 5.0 (5.0 - 8.0) 01/07/22 16:40 Ur Specific [place] 1.020 (1.000-1.030) 01/07/22 16:40 Urine Protein Negative (NEGATIVE) 01/07/22 16:40 Urine Glucose (UA) 4+ (NEGATIVE) 01/07/22 16:40 Urine Ketones 2+ (NEGATIVE) 01/07/22 16:40 Urine Blood Negative (NEGATIVE) 01/07/22 16:40 Urine Nitrite Negative (NEGATIVE) 01/07/22 16:40 Urine Bilirubin Negative (NEGATIVE) 01/07/22 16:40 Urine Urobilinogen Normal (NORMAL) 01/07/22 16:40 Ur Leukocyte Esterase Negative (NEGATIVE) 01/07/22 16:40 SARS-CoV-2 (PCR) Negative (NEGATIVE) 01/07/22 15:05 Plan (1) Uncontrolled diabetes mellitus: Status: Acute (2) Generalized weakness: Status: Acute (3) Intractable nausea and vomiting: Status: Acute (4) Sjoegren syndrome: Status: Chronic (5) Depression: Status: Chronic Qualifiers: Active/Remission status: in full remission Depression Type: major d epressive disorder (6) Arthritis: Status: Chronic (7) COPD (chronic obstructive pulmonary disease): Status: Chronic (8) Hypertension: Status: Chronic Qualifiers: Hypertension type: essential hypertension (9) Obliterative bronchiolitis: Status: Acute (10) Anemia: Status: Acute
[2022-01-09] MEDS: NovoLIN R (or HumuLIN R) SUBCUT PRN ×3 (12:00→20:22)
[2022-01-09] MEDS: ZOFRAN TAB 4 MG PO PRN ×2 (13:52→20:19)
[2022-01-09] MEDS: LAMICTAL TAB 100 MG PO SCH (20:18)
[2022-01-09] MEDS: SNACK - Diabetic Appropriate PO SCH (20:55)
[2022-01-10] MEDS: ZANAFLEX PO SCH ×3 (05:34→21:00)
[2022-01-10] MEDS: NS 1,000 ML IV 1,000 ML IV SCH ×3 (05:35→20:42)
[2022-01-10] MEDS: ZOFRAN TAB 4 MG PO PRN (05:37)
[2022-01-10] MEDS: NovoLIN R (or HumuLIN R) SUBCUT PRN ×3 (05:50→17:13)
[2022-01-10 06:11] LABS: BASOPHILS % (AUTO) 0.4 % (0.2-1.0); EOSINOPHILS # (AUTO) 0.2 x10^3/uL (0.0-0.2); EOSINOPHILS % (AUTO) 2.5 % (0.9-2.9); HEMATOCRIT 33.3 % (36.0-47.0); HEMOGLOBIN 11.2 g/dL (12.0-16.0); LYMPHOCYTES # (AUTO) 2.9 X10^3/uL (1.3-2.9); LYMPHOCYTES % (AUTO) 36.1 % (21.0-51.0); MEAN CORPUSCULAR HEMOGLOBIN 29.3 pg (27.0-34.0); MEAN CORPUSCULAR HGB CONC 33.5 g/dL (33.0-35.0); MEAN CORPUSCULAR VOLUME 87.3 fL (80.0-100.0); MEAN PLATELET VOLUME 8.6 fL (7.4-11.0); MONOCYTES # (AUTO) 0.6 x10^3/uL (0.3-0.8); MONOCYTES % (AUTO) 7.8 % (0.0-13.0); NEUTROPHILS # (AUTO) 4.3 x10^3/uL (2.2-4.8); NEUTROPHILS % (AUTO) 53.2 % (42.0-75.0); RED BLOOD COUNT 3.81 X10^6/uL (3.5-5.4); RED CELL DISTRIBUTION WIDTH 13.6 % (11.6-16.5); WHITE BLOOD COUNT 8.2 X10^3/uL (3.6-10.0)
[2022-01-10 06:27] LABS: ALANINE AMINOTRANSFERASE 22 Units/L (12-78); ALBUMIN 2.8 g/dL (3.4-5.0); ALKALINE PHOSPHATASE 69 Units/L (46-116); ASPARTATE AMINO TRANSFERASE 13 Units/L (15-37); BLOOD UREA NITROGEN 10 mg/dL (7-18); CALCIUM 8.3 mg/dL (8.5-10.1); CARBON DIOXIDE 31.4 mmol/L (21-32); CHLORIDE 103 mmol/L (98-107); COR CA(FOR HYPOALB) 9.3 mg/dL (8.5-10.1); COR NA(FOR HYPERGLY) 143 mmol/L (136-145); CREATININE 0.69 mg/dL (0.55-1.02); SODIUM 138 mmol/L (136-145); TOTAL PROTEIN 6.5 g/dL (6.4-8.2); eGFR NON BLACK RACES > 60 (>60)
[2022-01-10] MEDS ORDERED: ZOLOFT ONE (07:40)
[2022-01-10] MEDS: ROCEPHIN VIAL 1 GRAM 1 G in NS 100 ML IV 100 ML IV SCH (08:29)
[2022-01-10] MEDS: PEPCID TAB 40 MG PO SCH (08:31)
[2022-01-10] MEDS: COREG TAB 12.5 MG PO SCH ×2 (08:31→20:38)
[2022-01-10] MEDS: COZAAR PO SCH (08:31)
[2022-01-10] MEDS: KLONOPIN TAB 1 MG PO SCH ×2 (08:32→20:38)
[2022-01-10] MEDS: PROTONIX TAB 40 MG PO SCH ×2 (08:32→20:38)
[2022-01-10] MEDS: NEURONTIN CAP 100 MG PO SCH ×3 (08:32→20:37)
[2022-01-10] MEDS: FLONASE NASAL SPRAY ENOSTRIL SCH ×2 (08:33→20:39)
[2022-01-10] MEDS: ZOLOFT PO SCH (08:38)
[2022-01-10] MEDS ORDERED: LANTUS SC SCH (09:00)
--- NOTE | 2022-01-10 12:00 | PCM.PROG ---
Progress Note Progress Note for Day of Date of Exam: 01/10/22 Subjective Subjective: Patient seen at bedside, no acute events overnight. Patient states she feels slightly, still feels weak with ambulation. She states nausea is better, no vomiting today. She was able to eat her breakfast. Her BP has been better controlled. Patient had an EGD 2 months ago due to delayed gastric emptying. She has been eating small meals. Labs/imaging reviewed FSBG 290 KUB: no acute process CXR: no infiltrate or consolidation Urine Cx: >3 organisms, contamination Plan: increase lantus to 15 units BID, continue SSI. Continue diabetic diet. Advised patient to sit up and ambulate as tolerated. Continue gentle hydration. Follow urine Cx. Continue Rocephin. Continue home medications. Monitor AM labs/imaging. Past Medical Family Social History Allergies: Allergies No Known Drug Allergies Allergy (Verified 06/10/17 12:12) Review of Systems ROS: No change since H&P Vital Signs and I&O's Vital Signs: Temperature 97.8 F Pulse Rate [Right Brachial] 76 Respiratory Rate 18 Blood Pressure [Left Arm] 152/88 Blood Pressure [Right Arm] 121/74 Blood Pressure 110/60 O2 Sat by Pulse Oximetry 99 Intake and Output: Intake & Output 01/07/22 01/08/22 01/09/22 01/10/22 23:59 23:59 23:59 23:59 Intake Total 795 / 795 4144 / 4144 3667 / 3667 1006 / 1006 Balance 795 / 795 4144 / 4144 3667 / 3667 1006 / 1006 Physical Exam Oriented: Normal Ear: Normal Nose: Normal Throat: Normal Respiratory: Normal Cardiovascular: Normal Auscultation: Bowel Sounds: Normal Tenderness: Normal Skin: Normal Psychiatric: Normal Mood Description: Calm Affect: Normal Speech Pattern: Clear and Appropriate Laboratory and Diagnostics Result Diagrams: 01/10/22 05:10 01/10/22 05:10 Labs: 01/07/22 16:40 Urine,Clean Catch Urine Culture - Final Laboratory WBC 8.2 X10^3/uL (3.6-10.0) 01/10/22 05:10 RBC 3.81 X10^6/uL (3.5-5.4) 01/10/22 05:10 Hgb 11.2 g/dL (12.0-16.0) L 01/10/22 05:10 Hct 33.3 % (36.0-47.0) L 01/10/22 05:10 MCV 87.3 fL (80.0-100.0) 01/10/22 05:10 MCH 29.3 pg (27.0-34.0) 01/10/22 05:10 MCHC 33.5 g/dL (33.0-35.0) 01/10/22 05:10 RDW 13.6 % (11.6-16.5) 01/10/22 05:10 Plt Count 260 X10^3/uL (150.0-450.0) 01/10/22 05:10 MPV 8.6 fL (7.4-11.0) 01/10/22 05:10 Neut % (Auto) 53.2 % (42.0-75.0) 01/10/22 05:10 Lymph % (Auto) 36.1 % (21.0-51.0) 01/10/22 05:10 [place] % (Auto) 7.8 % (0.0-13.0) 01/10/22 05:10 Eos % (Auto) 2.5 % (0.9-2.9) 01/10/22 05:10 Baso % (Auto) 0.4 % (0.2-1.0) 01/10/22 05:10 Neut # (Auto) 4.3 x10^3/uL (2.2-4.8) 01/10/22 05:10 Lymph # (Auto) 2.9 X10^3/uL (1.3-2.9) 01/10/22 05:10 [place] # (Auto) 0.6 x10^3/uL (0.3-0.8) 01/10/22 05:10 Eos # (Auto) 0.2 x10^3/uL (0.0-0.2) 01/10/22 05:10 Baso # (Auto) 0.0 X10^3/uL (0.0-0.1) 01/10/22 05:10 Absolute Nucleated RBC 0.0 /100WBC 01/10/22 05:10 Sodium 138 mmol/L (136-145) 01/10/22 05:10 Corrected Sodium 143 mmol/L (136-145) 01/10/22 05:10 Potassium 4.2 mmol/L (3.5-5.1) 01/10/22 05:10 Chloride 103 mmol/L (98-107) 01/10/22 05:10 Carbon Dioxide 31.4 mmol/L (21-32) 01/10/22 05:10 BUN 10 mg/dL (7-18) 01/10/22 05:10 Creatinine 0.69 mg/dL (0.55-1.02) 01/10/22 05:10 Est GFR (MDRD) Af Amer > 60 (>60) 01/10/22 05:10 Est GFR (MDRD) Non-Af > 60 (>60) 01/10/22 05:10 Glucose 292 mg/dL (65-99) H 01/10/22 05:10 POC Glucose (mg/dL) 284 mg/dL (65-99) H 01/10/22 11:28 Calcium 8.3 mg/dL (8.5-10.1) L 01/10/22 05:10 Corrected Calcium 9.3 mg/dL (8.5-10.1) 01/10/22 05:10 Total Bilirubin 0.20 mg/dL (0.2-1.0) 01/10/22 05:10 AST 13 Units/L (15-37) L 01/10/22 05:10 ALT 22 Units/L (12-78) 01/10/22 05:10 Alkaline Phosphatase 69 Units/L (46-116) 01/10/22 05:10 Creatine Kinase 43 Units/L (26-192) 01/07/22 14:55 Troponin I High Sens < 4.0 ng/L (4.0-60.0) L 01/07/22 14:55 Total Protein 6.5 g/dL (6.4-8.2) 01/10/22 05:10 Albumin 2.8 g/dL (3.4-5.0) L 01/10/22 05:10 Globulin 3.7 g/dL (2.5-4.5) 01/10/22 05:10 Albumin/Globulin Ratio 0.8 Ratio (1.1-2.1) L 01/10/22 05:10 Amylase 43 Units/L (25-115) 01/08/22 05:24 Lipase 691 Units/L (73-393) H 01/08/22 05:24 Specimen Type Clean catch urine 01/07/22 16:40 Urine Color Pale yellow (YELLOW) 01/07/22 16:40 Urine Appearance Clear (CLEAR) 01/07/22 16:40 Urine pH 5.0 (5.0 - 8.0) 01/07/22 16:40 Ur Specific [place] 1.020 (1.000-1.030) 01/07/22 16:40 Urine Protein Negative (NEGATIVE) 01/07/22 16:40 Urine Glucose (UA) 4+ (NEGATIVE) 01/07/22 16:40 Urine Ketones 2+ (NEGATIVE) 01/07/22 16:40 Urine Blood Negative (NEGATIVE) 01/07/22 16:40 Urine Nitrite Negative (NEGATIVE) 01/07/22 16:40 Urine Bilirubin Negative (NEGATIVE) 01/07/22 16:40 Urine Urobilinogen Normal (NORMAL) 01/07/22 16:40 Ur Leukocyte Esterase Negative (NEGATIVE) 01/07/22 16:40 SARS-CoV-2 (PCR) Negative (NEGATIVE) 01/07/22 15:05 Plan (1) Uncontrolled diabetes mellitus: Status: Acute (2) Generalized weakness: Status: Acute (3) Intractable nausea and vomiting: Status: Acute (4) Sjoegren syndrome: Status: Chronic (5) Depression: Status: Chronic Qualifiers: Active/Remission status: in full remission Depression Type: major depressive disorder (6) Arthritis: Status: Chronic (7) COPD (chronic obstructive pulmonary disease): Status: Chronic (8) Hypertension: Status: Chronic Qualifiers: Hypertension type: essential hypertension (9) Obliterative bronchiolitis: Status: Acute (10) Anemia: Status: Acute
[2022-01-10] MEDS ORDERED: COLACE CAP 100 MG PO PRN (19:37)
[2022-01-10] MEDS ORDERED: MILK OF MAGNESIA PO PRN (19:37)
[2022-01-10] MEDS: LANTUS SC SCH (20:36)
[2022-01-10] MEDS: LAMICTAL TAB 100 MG PO SCH (20:39)
[2022-01-10] MEDS: SNACK - Diabetic Appropriate PO SCH (20:47)
[2022-01-11] MEDS: NORCO 10/325 TAB PO PRN (03:59)
[2022-01-11] MEDS: ZANAFLEX PO SCH (05:26)
[2022-01-11] MEDS: NS 1,000 ML IV 1,000 ML IV SCH ×2 (05:40→09:56)
[2022-01-11 06:07] LABS: ALANINE AMINOTRANSFERASE 27 Units/L (12-78); ALBUMIN 2.8 g/dL (3.4-5.0); ALKALINE PHOSPHATASE 70 Units/L (46-116); ASPARTATE AMINO TRANSFERASE 15 Units/L (15-37); BLOOD UREA NITROGEN 8 mg/dL (7-18); CALCIUM 8.4 mg/dL (8.5-10.1); CARBON DIOXIDE 34.1 mmol/L (21-32); CHLORIDE 101 mmol/L (98-107); COR CA(FOR HYPOALB) 9.4 mg/dL (8.5-10.1); COR NA(FOR HYPERGLY) 142 mmol/L (136-145); CREATININE 0.74 mg/dL (0.55-1.02); SODIUM 137 mmol/L (136-145); TOTAL PROTEIN 6.8 g/dL (6.4-8.2); eGFR NON BLACK RACES > 60 (>60)
[2022-01-11 06:11] LABS: BASOPHILS % (AUTO) 0.5 % (0.2-1.0); EOSINOPHILS # (AUTO) 0.2 x10^3/uL (0.0-0.2); EOSINOPHILS % (AUTO) 2.1 % (0.9-2.9); HEMATOCRIT 33.7 % (36.0-47.0); HEMOGLOBIN 11.3 g/dL (12.0-16.0); LYMPHOCYTES # (AUTO) 2.6 X10^3/uL (1.3-2.9); LYMPHOCYTES % (AUTO) 29.6 % (21.0-51.0); MEAN CORPUSCULAR HEMOGLOBIN 29.2 pg (27.0-34.0); MEAN CORPUSCULAR HGB CONC 33.6 g/dL (33.0-35.0); MEAN PLATELET VOLUME 8.5 fL (7.4-11.0); MONOCYTES # (AUTO) 0.8 x10^3/uL (0.3-0.8); MONOCYTES % (AUTO) 9.6 % (0.0-13.0); NEUTROPHILS # (AUTO) 5.1 x10^3/uL (2.2-4.8); NEUTROPHILS % (AUTO) 58.2 % (42.0-75.0); RED BLOOD COUNT 3.88 X10^6/uL (3.5-5.4); RED CELL DISTRIBUTION WIDTH 13.6 % (11.6-16.5); WHITE BLOOD COUNT 8.7 X10^3/uL (3.6-10.0)
[2022-01-11] MEDS: NovoLIN R (or HumuLIN R) SUBCUT PRN ×2 (06:20→12:17)
[2022-01-11] MEDS: COREG TAB 12.5 MG PO SCH (08:39)
[2022-01-11] MEDS: ZOLOFT PO SCH (08:39)
[2022-01-11] MEDS: PROTONIX TAB 40 MG PO SCH (08:39)
[2022-01-11] MEDS: KLONOPIN TAB 1 MG PO SCH (08:40)
[2022-01-11] MEDS: COZAAR PO SCH ×2 (08:40→08:52)
[2022-01-11] MEDS: FLONASE NASAL SPRAY ENOSTRIL SCH (08:40)
[2022-01-11] MEDS: ROCEPHIN VIAL 1 GRAM 1 G in NS 100 ML IV 100 ML IV SCH (08:40)
[2022-01-11] MEDS: PEPCID TAB 40 MG PO SCH (08:41)
[2022-01-11] MEDS: NEURONTIN CAP 100 MG PO SCH (08:41)
[2022-01-11] MEDS: ZOLOFT ONE (08:42)
[2022-01-11] MEDS: LANTUS SC SCH (10:34)
[2022-01-11 12:56] VITALS: BP 137/84
== END 2022-01-11 14:05 | disposition home or self-care (01) | DRG 639 ==
LOC: MED/SURG
PROVIDERS: ADMIT Internal Medicine; ATTEND Internal Medicine
DX: J42 Unspecified chronic bronchitis; E86.0 Dehydration; R11.2 Nausea with vomiting, unspecified; M19.90 Unspecified osteoarthritis, unspecified site; M35.00 Sjogren syndrome, unspecified; I10 Essential (primary) hypertension; R53.1 Weakness; F32.89 Other specified depressive episodes; D64.89 Other specified anemias; Z20.822 Contact with and (suspected) exposure to COVID-19; E11.65 Type 2 diabetes mellitus with hyperglycemia